=== PATIENT | male | born 1965 | race Caucasian/White ===

== ENCOUNTER 2020-03-30 01:30 | Emergency (ER) | payer MEDICAID, SELFPAY ==
--- NOTE | ~2020-03-30 | CT_ITS ---
EXAMINATION: CT HEAD WITHOUT CONTRAST CLINICAL INFORMATION: Fall. Intoxicated. COMPARISON: None. TECHNIQUE: Contiguous axial imaging was performed from the skull base to vertex without intravenous contrast. This CT examination was performed using dose optimization techniques as appropriate, variously including the following: * Automated exposure control * Adjustment of mA and/or kV according to patient size (this includes techniques or standardized protocols for targeted exams where dose is matched to indication/reason for exam; i.e. extremities or head) Use of iterative reconstruction technique DLP: 1261 mGy-cm. FINDINGS: The study is motion limited. There is no evidence of acute intracranial hemorrhage or territorial infarction. No abnormal mass effect or midline shift is seen. [place] to white matter differentiation is well preserved. No extra-axial fluid collections are identified. No hydrocephalus. No significant volume loss. There is no abnormal attenuation within the brain parenchyma. The osseous structures and soft tissues are normal. The mastoid air cells and visualized portions of the paranasal sinuses are well aerated. CT/CT head/brain wo con IMPRESSION: No acute intracranial pathology.
[2020-03-30 02:12] VITALS: BP 173/108; PULSE 113; RESP 20; TEMP 36.6; O2SAT 96; BMI 22.8
--- NOTE | 2020-03-30 02:16 | PC.NURSE ---
CHANGEOVER COMPLETED WITHOUT ISSUE. PT AMBULATES WITH STEADY GAIT. ADMITS TO ETOH USE TODAY, WITH FALL. NO OBVIOUS SIGNS OF INJURY NOTED, DENIES PAIN/COMPLAINTS AT THIS TIME. DENIES SI/HI. 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 WITNESSED BY THIS RN AND CONSTANTIN (PCT). PATIENT IS PLEASANT, CALM/COOPERATIVE, IN BEHAVIORAL CONTROL AT THIS TIME AND IS EASILY REDIRECTABLE/RESPONSIVE. WILL CONTINUE TO MONITOR.
--- NOTE | 2020-03-30 03:54 | ECG_ITS ---
Test Reason : FALL Blood Pressure : / mmHG Vent. Rate : 125 BPM Atrial Rate : 125 BPM P-R Int : 138 ms QRS Dur : 084 ms QT Int : 318 ms P-R-T Axes : 085 087 075 degrees QTc Int : 458 ms Sinus tachycardia Possible Left atrial enlargement Anterior infarct , age undetermined Abnormal ECG No previous ECGs available Referred By: Eboni Alonzo Electronically Signed By:Zhang Diaz
[2020-03-30 04:00] VITALS: BP 158/78; PULSE 120; RESP 20; TEMP 36.1; O2SAT 99
--- NOTE | 2020-03-30 04:13 | ED.ALCOHOL ---
HPI - Alcohol General Chief Complaint: ETOH/Substance Use Stated Complaint: fall Time Seen by Provider: 03/30/20 03:03 Source: patient Mode of arrival: EMS History of Present Illness HPI narrative: This is a 54-year-old male with alcohol dependence who was found by police after a fall and patient states that yes he slipped and fell on some ice. The police called the ambulance for evaluation by the emergency department. Patient denies any drug use, dizziness, neck pain, or headache. Related Data Allergies Allergy/AdvReac Type Severity Reaction Status Date / Time No Known Allergies Allergy Verified 03/30/20 03:55 Review of Systems Review of Systems: Pertinent positives and negatives as stated in HPI 10 point review of systems is otherwise negative. PMFSH Past Medical History Source: nursing notes reviewed Social History Social History Alcohol intake: current Alcohol intake frequency: 0-2 drinks per day Alcohol type: beer Smoking Status: Current every day smoker Use of substances other than those prescribed or required for medical reasons: No Advance Directives: No Physical Exam Vital Signs: Vital Signs: Last Vital Signs Temp 96.9 F 03/30/20 04:00 Pulse 120 H 03/30/20 04:00 Resp 20 03/30/20 04:00 BP 158/78 H 03/30/20 04:00 Pulse Ox 99 03/30/20 04:00 Body Mass Index 22.8 VITAL SIGNS: Reviewed. GENERAL: Well developed, well nourished, in no acute distress. HEAD: Normocephalic/atraumatic EYES: PERRLA, EOMI NOSE: Nares patent bilateral OROPHARYNX: no oral lesions noted, posterior pharynx clear NECK: Supple, no adenopathy LUNGS: Normal breath sounds. SpO2<99> CARDIOVASCULAR: Sinus tachycardia without noted murmurs, no JVD or lower extremity edema. ABDOMEN: Soft, non-tender, non-distended with bowel sounds. MUSCULOSKELETAL: No tenderness, deformities, or effusions noted on gross inspection. EXTREMITIES: No cyanosis, clubbing or edema. SKIN: Inspection of the skin reveals no rashes NEUROLOGIC: Alert and oriented x 4. Strength and sensation to light touch were grossly intact x 4, steady gait, no slurred speech. Course Course Course Narrative: This is a 54-year-old male with history and clinical presentation consistent with mechanical slip and fall on ice and review of all investigations is negative for any acute findings other than expected elevated BARTOLO. Patient has been calm cooperative throughout his stay and CT was negative for any intracranial findings. Patient is clinically sober and will be discharged with a sober ride with his friend. He is otherwise hemodynamically stable. MDM - Alcohol Lab Data Result diagrams: 03/30/20 04:29 03/30/20 04:29 Labs: Lab Results 03/30/20 03/30/20 03/30/20 Range/Units 04:29 04:29 04:29 WBC 5.3 (4.8-10.8) X10*3/uL RBC 4.43 L (4.60-5.80) X10*6/uL Hgb 14.4 (14.0-18.0) g/dl Hct 43.0 (42-52) % MCV 97.1 (80-98) fL MCH 32.5 (27.0-33.0) pg MCHC 33.5 (31.0-36.0) g/dl RDW 12.6 (11.0-16.0) % Plt Count 146 L (160-400) X10*3/uL MPV 9.2 L (9.4-12.4) fL Immature Gran % (Auto) 0.4 (0.0-0.4) % Neut % (Auto) 60.0 (45-73) % Lymph % (Auto) 22.5 (20-40) % [place] % (Auto) 12.0 H (2-11) % Eos % (Auto) 3.2 (0-4) % Baso % (Auto) 1.9 (0-2) % Lymph # (Auto) 1.2 (1.2-4.9) X10*3/uL [place] # (Auto) 0.6 (0.1-1.2) X10*3/uL Eos # (Auto) 0.2 (0.0-0.4) X10*3/uL Baso # (Auto) 0.1 (0.0-0.2) X10*3/uL Abs Immat Gran (auto) 0.02 (0.00-0.03) X10*3/uL Absolute Neuts (auto) 3.2 (2.0-8.3) X10*3/uL Absolute Nucleated RBC 0.000 (0.0-0.012) X10*3/uL Nucleated RBC % (auto) 0.0 (0.0-0.2) /100WBC Sodium 141 (135-145) mmol/L Potassium 4.5 (3.3-5.1) mmol/L Chloride 104 (96-108) mmol/L Carbon Dioxide 23 (22-29) mmol/L Anion Gap 19 (12-20) BUN 11 (9-16) mg/dL Creatinine 0.79 (0.5-1.4) mg/dL Estim Creat Clear Calc 102.8 Estimated GFR > 60 Random Glucose 114 (60-115) mg/dL Calcium 9.3 (8.4-10.2) mg/dL Total Bilirubin 0.6 (0.0-1.0) mg/dL AST 142 H (5-37) U/L ALT 101 H (0-40) U/L Alkaline Phosphatase 105 (39-117) U/L Total Protein 7.6 (6.5-8.0) g/dL Albumin 4.8 (3.5-5.0) g/dL Ethyl Alcohol 349 H* mg/dL ECG Data Attestation: I personally reviewed and interpreted this ECG as follows: Prior ECG tracings: not available for review Interpretation: Since tachycardia, HR -125, no evidence of acute ischemia, [place]/QRS/QTC are within normal limits. Discharge Plan Discharge Clinical Impression: Alcoholic intoxication Qualifiers: Complication of substance-induced condition: uncomplicated Qualified Code(s): F10.920 - Alcohol use, unspecified with intoxication, uncomplicated Fall Qualifiers: Encounter type: initial encounter Qualified Code(s): W19.XXXA - Unspecified fall, initial encounter Patient Disposition: Home, Self-Care Instructions: Alcohol Intoxication (ED), Alcohol Dependence (ED), Fall Prevention for Older Adults (ED) Additional Instructions: Please return to the emergency department should you develop any concerning symptoms. Referrals: Physician,Unknown [Primary Care Provider] - 2 days
[2020-03-30 04:33] LABS: Basophils Absolute Auto 0.1 X10*3/uL (0.0-0.2); Basophils Percent Auto 1.9 % (0-2); Eosinophils Absolute Auto 0.2 X10*3/uL (0.0-0.4); Eosinophils Percent Auto 3.2 % (0-4); Hemoglobin 14.4 g/dl (14.0-18.0); Imm Gran Abs Auto 0.02 X10*3/uL (0.00-0.03); Imm Gran Pct Auto 0.4 % (0.0-0.4); Lymphocytes Absolute Auto 1.2 X10*3/uL (1.2-4.9); Lymphocytes Percent Auto 22.5 % (20-40); MANUAL DIFF FLAG NO; Mean Corpuscular HGB Conc 33.5 g/dl (31.0-36.0); Mean Corpuscular Hemoglobin 32.5 pg (27.0-33.0); Mean Corpuscular Volume 97.1 fL (80-98); Mean Platelet Volume 9.2 fL (9.4-12.4); Monocytes Absolute Auto 0.6 X10*3/uL (0.1-1.2); Neutrophils Absolute Auto 3.2 X10*3/uL (2.0-8.3); Platelet Count 146 X10*3/uL (160-400); Red Blood Count 4.43 X10*6/uL (4.60-5.80); Red Cell Distribution Width 12.6 % (11.0-16.0); White Blood Count 5.3 X10*3/uL (4.8-10.8)
[2020-03-30 04:58] LABS: Ethanol 349 mg/dL
[2020-03-30 05:05] LABS: Alanine Aminotransferase 101 U/L (0-40); Albumin Level 4.8 g/dL (3.5-5.0); Alkaline Phosphatase 105 U/L (39-117); Anion Gap 19 (12-20); Aspartate Amino Transferase 142 U/L (5-37); Bilirubin Total 0.6 mg/dL (0.0-1.0); Blood Urea Nitrogen 11 mg/dL (9-16); Calcium 9.3 mg/dL (8.4-10.2); Carbon Dioxide 23 mmol/L (22-29); Chloride 104 mmol/L (96-108); Creatinine Clr Calc Pharmacy 102.8; Estimated Glomerular Filt Rate > 60; Glucose Random 114 mg/dL (60-115); Potassium 4.5 mmol/L (3.3-5.1); Sodium 141 mmol/L (135-145); Total Protein 7.6 g/dL (6.5-8.0)
== END 2020-03-30 07:09 | disposition home or self-care (01) ==
PROVIDERS: Emergency Provider Student in an Organized Health Care Education/Training Program
DX: F10.220 Alcohol dependence with intoxication, uncomplicated (principal); Y90.8 Blood alcohol level of 240 mg/100 ml or more; R00.0 Tachycardia, unspecified; Z91.81 History of falling; F17.200 Nicotine dependence, unspecified, uncomplicated
CPT/HCPCS: 36415; 70450; 80053; 80320; 85025; 93005; 99284; 99285

== ENCOUNTER 2020-05-10 02:43 | Emergency (ER) | payer OTHER, SELFPAY ==
--- NOTE | ~2020-05-10 | CT_ITS ---
EXAMINATION: CT HEAD WITHOUT CONTRAST CLINICAL INFORMATION: Fall. Contusion. COMPARISON: 03/30/2020. TECHNIQUE: Contiguous helical images of the brain were obtained without IV contrast. Multiplanar reconstructions were performed. DLP: 628 mGy-cm. FINDINGS: There are no pathologic extra-axial fluid collections. The lateral, third, fourth ventricles are nondilated and concordant with the appearance of the sulci. There is no evidence for acute intraparenchymal hemorrhage or infarct. There is neither mass nor mass effect. There is no shift of midline structures. The paranasal sinuses and mastoid air cells are clear. There are no osseous lesions. There is a soft tissue hematoma overlying the right frontal bone. CT/CT head/brain wo con IMPRESSION: No evidence for acute intracranial injury. Automated exposure control (Care Dose) Adjustment of the mA and/or kv according to patient size (this includes techniques or standardized protocols for targeted exams where dose is matched to indication / reason for exam; i.e. extremities or head).
[2020-05-10 02:45] VITALS: BP 130/70; BP 165/109; PULSE 120; PULSE 70; RESP 18; TEMP 36.3; O2SAT 97; O2SAT 99; BMI 22.0
--- NOTE | 2020-05-10 03:08 | ED_ITS ---
HPI - Alcohol General Chief Complaint: ETOH/Substance Use Stated Complaint: ETOH INTOX W/FALL, FOUND WANDERING OUTSIDE BY [employer] Time Seen by Provider: 05/10/20 03:07 Source: patient Mode of arrival: EMS History of Present Illness HPI narrative: This is a 55-year-old male with known alcohol dependency who was found wandering by police. Patient states he had 3 drinks. Patient currently denies any pain, difficulty breathing, or chest pain. Patient denies any headache or neck pain, dizziness. Related Data Allergies Allergy/AdvReac Type Severity Reaction Status Date / Time No Known Allergies Allergy Verified 03/30/20 03:55 Review of Systems Review of Systems: Pertinent positives and negatives as stated in HPI 10 point review of systems is otherwise negative. [facility] Past Medical History Source: nursing notes reviewed Medical History ETOH abuse Social History Social History Alcohol intake: current Alcohol intake frequency: 0-2 drinks per day Alcohol type: beer Smoking Status: Current every day smoker Advance Directives: No Advance Directives Information Provided: No Physical Exam Vital Signs: Vital Signs: Last Vital Signs Temp 98.7 F 05/10/20 04:00 Pulse 102 H 05/10/20 06:53 Resp 15 05/10/20 06:53 BP 118/69 05/10/20 06:53 Pulse Ox 95 05/10/20 06:53 Body Mass Index 22.0 VITAL SIGNS: Reviewed. GENERAL: Well developed, well nourished, in no acute distress. HEAD: Normocephalic/contusion noted to right forehead and temporal area EYES: PERRLA, EOMI intact without pain, no nystagmus/pallor/icterus noted OROPHARYNX: no oral lesions noted, posterior pharynx clear, dry mucosa NECK: Supple, no adenopathy LUNGS: Normal breath sounds. No adventitious sounds or accessory muscle use. SpO2<98> CARDIOVASCULAR: Regular rate and rhythm without noted murmurs ABDOMEN: Soft, non-tender, non-distended with bowel sounds. NEUROLOGIC: Alert and oriented x 4. Strength and sensation to light touch were grossly intact x 4. Course Course Course Narrative: This is a 55-year-old male with history and clinical presentation consistent with alcohol intoxication leading to fall without evidence to suggest intracranial pathologies. Patient will be given IV fluids, basic labs, and head CT, IV fluids. On review of all investigations there are no acute findings other than trace leukocyte esterase without nitrites, ketones or wbc's given the presence squamous epithelial cells will not be treated as a UTI. On re-evaluation patient remains slightly unsteady, will provide breakfast, and re-evaluate for clinical sobriety MDM - Alcohol Lab Data Result diagrams: 05/10/20 03:41 05/10/20 03:41 Labs: Lab Results 05/10/20 05/10/20 05/10/20 Range/Units 03:41 03:41 03:41 WBC 5.5 (4.8-10.8) X10*3/uL RBC 4.54 L (4.60-5.80) X10*6/uL Hgb 14.9 (14.0-18.0) g/dl Hct 44.8 (42-52) % MCV 98.7 H (80-98) fL MCH 32.8 (27.0-33.0) pg MCHC 33.3 (31.0-36.0) g/dl RDW 13.0 (11.0-16.0) % Plt Count 157 L (160-400) X10*3/uL MPV 9.4 (9.4-12.4) fL Immature Gran % (Auto) 0.5 H (0.0-0.4) % Neut % (Auto) 53.4 (45-73) % Lymph % (Auto) 25.5 (20-40) % [place] % (Auto) 13.3 H (2-11) % Eos % (Auto) 5.3 H (0-4) % Baso % (Auto) 2.0 (0-2) % Lymph # (Auto) 1.4 (1.2-4.9) X10*3/uL [place] # (Auto) 0.7 (0.1-1.2) X10*3/uL Eos # (Auto) 0.3 (0.0-0.4) X10*3/uL Baso # (Auto) 0.1 (0.0-0.2) X10*3/uL Abs Immat Gran (auto) 0.03 (0.00-0.03) X10*3/uL Absolute Neuts (auto) 2.9 (2.0-8.3) X10*3/uL Absolute Nucleated RBC 0.000 (0.0-0.012) X10*3/uL Nucleated RBC % (auto) 0.0 (0.0-0.2) /100WBC Sodium 138 (135-145) mmol/L Potassium 4.2 (3.3-5.1) mmol/L Chloride 100 (96-108) mmol/L Carbon Dioxide 24 (22-29) mmol/L Anion Gap 18 (12-20) BUN 14 (9-16) mg/dL Creatinine 0.94 (0.5-1.4) mg/dL Estim Creat Clear Calc 89.9 Estimated GFR > 60 Random Glucose 103 (60-115) mg/dL Calcium 9.1 (8.4-10.2) mg/dL Total Bilirubin 0.6 (0.0-1.0) mg/dL AST 67 H (5-37) U/L ALT 56 H (0-40) U/L Alkaline Phosphatase 96 (39-117) U/L Total Protein 8.0 (6.5-8.0) g/dL Albumin 4.9 (3.5-5.0) g/dL Urine Color Urine Appearance Urine pH (5.0-8.0) Ur Specific [place] (1.005-1.025) Urine Protein (NEG-TRACE) MG/DL Urine Glucose (UA) (NEG) MG/DL Urine Ketones (NEG) MG/DL Urine Blood (NEG) Urine Nitrite (NEG) Ur Leukocyte Esterase (NEG) Urine RBC (0) /HPF Urine WBC (0-4) /HPF Ur Squamous Epith Cells /LPF Urine Bacteria /LPF Urine Opiates Screen (Not Detect) Ur Barbiturates Screen (Not Detect) Ur Phencyclidine Scrn (Not Detect) Ur Amphetamines Screen (Not Detect) U Benzodiazepines Scrn (Not Detect) Urine Cocaine Screen (Not Detect) U Marijuana (THC) Screen (Not Detect) Ethyl Alcohol 375 H* mg/dL 05/10/20 05/10/20 Range/Units 03:47 03:47 WBC (4.8-10.8) X10*3/uL RBC (4.60-5.80) X10*6/uL Hgb (14.0-18.0) g/dl Hct (42-52) % MCV (80-98) fL MCH (27.0-33.0) pg MCHC (31.0-36.0) g/dl RDW (11.0-16.0) % Plt Count (160-400) X10*3/uL MPV (9.4-12.4) fL Immature Gran % (Auto) (0.0-0.4) % Neut % (Auto) (45-73) % Lymph % (Auto) (20-40) % [place] % (Auto) (2-11) % Eos % (Auto) (0-4) % Baso % (Auto) (0-2) % Lymph # (Auto) (1.2-4.9) X10*3/uL [place] # (Auto) (0.1-1.2) X10*3/uL Eos # (Auto) (0.0-0.4) X10*3/uL Baso # (Auto) (0.0-0.2) X10*3/uL Abs Immat Gran (auto) (0.00-0.03) X10*3/uL Absolute Neuts (auto) (2.0-8.3) X10*3/uL Absolute Nucleated RBC (0.0-0.012) X10*3/uL Nucleated RBC % (auto) (0.0-0.2) /100WBC Sodium (135-145) mmol/L Potassium (3.3-5.1) mmol/L Chloride (96-108) mmol/L Carbon Dioxide (22-29) mmol/L Anion Gap (12-20) BUN (9-16) mg/dL Creatinine (0.5-1.4) mg/dL Estim Creat Clear Calc Estimated GFR Random Glucose (60-115) mg/dL Calcium (8.4-10.2) mg/dL Total Bilirubin (0.0-1.0) mg/dL AST (5-37) U/L ALT (0-40) U/L Alkaline Phosphatase (39-117) U/L Total Protein (6.5-8.0) g/dL Albumin (3.5-5.0) g/dL Urine Color STRAW Urine Appearance CLEAR Urine pH 5.5 (5.0-8.0) Ur Specific [place] <= 1.005 (1.005-1.025) Urine Protein NEG (NEG-TRACE) MG/DL Urine Glucose (UA) NEG (NEG) MG/DL Urine Ketones NEG (NEG) MG/DL Urine Blood NEG (NEG) Urine Nitrite NEG (NEG) Ur Leukocyte Esterase TRACE H (NEG) Urine RBC 0 (0) /HPF Urine WBC 0 (0-4) /HPF Ur Squamous Epith Cells TRACE /LPF Urine Bacteria NONE /LPF Urine Opiates Screen Not Detected (Not Detect) Ur Barbiturates Screen Not Detected (Not Detect) Ur Phencyclidine Scrn Not Detected (Not Detect) Ur Amphetamines Screen Not Detected (Not Detect) U Benzodiazepines Scrn Not Detected (Not Detect) Urine Cocaine Screen Not Detected (Not Detect) U Marijuana (THC) Screen Not Detected (Not Detect) Ethyl Alcohol mg/dL ECG Data Attestation: I personally reviewed and interpreted this ECG as follows: Prior ECG tracings: available for review (03/30/2020 no acute changes on comparison) Interpretation: Sinus tachycardia, HR-120, no evidence of acute ischemia, [place]/QRS/QTC are within normal limits. Discharge Plan Discharge Clinical Impression: Alcoholic intoxication, Contusion Patient Disposition: Home, Self-Care Instructions: Abuse of Alcohol (ED), Alcohol Dependence (ED), Alcohol Intoxication (ED), Scalp Contusion in Adults (ED) Additional Instructions: Do not hesitate to return to the emergency department should you experience any acute worsening of symptoms. Referrals: Physician,Unknown [Primary Care Provider] - 2 days
--- NOTE | 2020-05-10 03:08 | ECG_ITS ---
Test Reason : FALL Blood Pressure : / mmHG Vent. Rate : 120 BPM Atrial Rate : 120 BPM P-R Int : 140 ms QRS Dur : 082 ms QT Int : 330 ms P-R-T Axes : 079 084 075 degrees QTc Int : 466 ms Sinus tachycardia Possible Left atrial enlargement Possible anterior infarct Abnormal ECG When compared with ECG of 30-MAR-2020 04:09, No significant change was found Referred By: Eboni Alonzo Electronically Signed By:Zhang Diaz
[2020-05-10 03:45] LABS: Basophils Absolute Auto 0.1 X10*3/uL (0.0-0.2); Eosinophils Absolute Auto 0.3 X10*3/uL (0.0-0.4); Eosinophils Percent Auto 5.3 % (0-4); Hematocrit 44.8 % (42-52); Hemoglobin 14.9 g/dl (14.0-18.0); Imm Gran Abs Auto 0.03 X10*3/uL (0.00-0.03); Imm Gran Pct Auto 0.5 % (0.0-0.4); Lymphocytes Absolute Auto 1.4 X10*3/uL (1.2-4.9); Lymphocytes Percent Auto 25.5 % (20-40); MANUAL DIFF FLAG NO; Mean Corpuscular HGB Conc 33.3 g/dl (31.0-36.0); Mean Corpuscular Hemoglobin 32.8 pg (27.0-33.0); Mean Corpuscular Volume 98.7 fL (80-98); Mean Platelet Volume 9.4 fL (9.4-12.4); Monocytes Absolute Auto 0.7 X10*3/uL (0.1-1.2); Monocytes Percent Auto 13.3 % (2-11); Neutrophils Absolute Auto 2.9 X10*3/uL (2.0-8.3); Neutrophils Percent Auto 53.4 % (45-73); Platelet Count 157 X10*3/uL (160-400); Red Blood Count 4.54 X10*6/uL (4.60-5.80); White Blood Count 5.5 X10*3/uL (4.8-10.8)
[2020-05-10 04:00] VITALS: BP 148/87; PULSE 121; RESP 16; TEMP 37.1; O2SAT 98
[2020-05-10 04:04] LABS: Glucose Urine UA NEG (NEG); Leukocyte Esterase Urine TRACE (NEG); Nitrite Urine NEG (NEG); PH 5.5 (5.0-8.0); Specific Gravity - Urine <= 1.005 (1.005-1.025); UACC Culture Trigger YES; Urine Blood NEG (NEG); Urine Ketones NEG (NEG); Urine Protein NEG (NEG-TRACE)
[2020-05-10 04:04] LABS: Ethanol 375 mg/dL
[2020-05-10 04:05] LABS: Appearance Urine CLEAR; Color Urine STRAW
[2020-05-10] MEDS: 0.9 % Sodium Chloride 1,000 ML 999 ML IV (04:05)
[2020-05-10 04:08] LABS: Alanine Aminotransferase 56 U/L (0-40); Albumin Level 4.9 g/dL (3.5-5.0); Alkaline Phosphatase 96 U/L (39-117); Anion Gap 18 (12-20); Aspartate Amino Transferase 67 U/L (5-37); Bilirubin Total 0.6 mg/dL (0.0-1.0); Blood Urea Nitrogen 14 mg/dL (9-16); Calcium 9.1 mg/dL (8.4-10.2); Carbon Dioxide 24 mmol/L (22-29); Chloride 100 mmol/L (96-108); Creatinine Clr Calc Pharmacy 89.9; Estimated Glomerular Filt Rate > 60; Glucose Random 103 mg/dL (60-115); Potassium 4.2 mmol/L (3.3-5.1); Sodium 138 mmol/L (135-145)
[2020-05-10 04:17] LABS: Amphetamine Screen Urine Not Detected (Not Detect); Barbiturates, Urine Not Detected (Not Detect); Benzodiazepines Screen Urine Not Detected (Not Detect); Cannabinoid Screen Urine Not Detected (Not Detect); Cocaine Screen Urine Not Detected (Not Detect); Opiate Screen Urine Not Detected (Not Detect); Phencyclidine Screen Urine Not Detected (Not Detect)
[2020-05-10 04:24] LABS: RBC Urine 0 /HPF (0); WBC Urine 0 /HPF (0-4)
[2020-05-10 04:25] LABS: Squamous Epithelial Cell Urine TRACE /LPF
--- NOTE | 2020-05-10 04:27 | PC.NURSE ---
pt awake, cooperative and aware of his surroundings. pt has swelling and abrasion to left forehead. pt's backpack given to security, several knives in backpack.
[2020-05-10] MEDS: LORazepam 2 MG/ML VIAL 1 MG IVPUSH (05:18)
[2020-05-10 05:22] VITALS: BP 136/72; PULSE 122; RESP 17; O2SAT 97
[2020-05-10 05:50] VITALS: BP 119/64; PULSE 113; RESP 14; O2SAT 95
[2020-05-10 06:53] VITALS: BP 118/69; PULSE 102; RESP 15; O2SAT 95
--- NOTE | 2020-05-10 06:54 | PC.NURSE ---
PT SLEEPING, WAKES EASILY WHEN RN ENTERS ROOM. GOOD RESPIRATORY EFFORT AND RATE.
--- NOTE | 2020-05-10 07:31 | PC.NURSE ---
Ambulation trial performed. Pt moderately unsteady needing alot of redirection. Will feed breakfast and perform trial again in 1 hour.
--- NOTE | 2020-05-10 08:05 | MHC.MBSS ---
[place] and JESSIKA sandwiches with hakeem froilan provided to pt.
--- NOTE | 2020-05-10 08:43 | MHC.RECOVSUP ---
Recovery Support note: Patient is a 55 year old Nauruan speaking male who presented to [facility] ED after a fall while intoxicated. This sql report writer met with patient to discuss his alcohol use. Patient was willing to meet with this sql report writer however denied that his drinking is problematic. Patient states he had about 3 beers prior to his fall but cites his heavy backpack as the reason for his fall. Patient reports he lost his truck a year ago and he has been walking several miles a day as a result. Patient reports falling due to the large amount of walking he has been doing and his backpack making him unsteady. Patient reports no need for support at this time.
== END 2020-05-10 09:15 | disposition home or self-care (01) ==
PROVIDERS: Emergency Provider Student in an Organized Health Care Education/Training Program
DX: F10.220 Alcohol dependence with intoxication, uncomplicated (principal); Y90.8 Blood alcohol level of 240 mg/100 ml or more; S00.83XA Contusion of other part of head, initial encounter; W01.0XXA Fall on same level from slipping, tripping and stumbling without subsequent striking against object, initial encounter; R00.0 Tachycardia, unspecified; F17.200 Nicotine dependence, unspecified, uncomplicated; Y93.01 Activity, walking, marching and hiking; Y92.480 Sidewalk as the place of occurrence of the external cause; Y99.9 Unspecified external cause status
CPT/HCPCS: 36415; 70450; 80053; 80307; 80320; 81001; 81003; 85025; 87086; 93005; 96361; 96374; 99284; J2060

== ENCOUNTER 2021-05-18 10:55 | Emergency (ER) | payer OTHER, SELFPAY ==
[2021-05-18] VITALS (7 sets, daily range): BP systolic 153–177; BP diastolic 94–109; PULSE 80–112; RESP 16–20; TEMP 36.4–37.3; O2SAT 95–98; BMI 27.3
--- NOTE | ~2021-05-18 | XR_ITS ---
EXAMINATION: XR CHEST CLINICAL INFORMATION: Shortness of breath. Chest pain. COMPARISON: None TECHNIQUE: 2 views of the chest were obtained. FINDINGS: The lungs are well expanded. There is no focal consolidation, edema, or effusion. No pneumothorax. The cardiomediastinal silhouette is within normal limits. No acute osseous abnormality. XR/XR chest 2V IMPRESSION: Clear lungs.
--- NOTE | 2021-05-18 14:47 | ECG_ITS ---
Test Reason : DETOX Blood Pressure : / mmHG Vent. Rate : 094 BPM Atrial Rate : 094 BPM P-R Int : 146 ms QRS Dur : 074 ms QT Int : 362 ms P-R-T Axes : 078 094 077 degrees QTc Int : 452 ms Normal sinus rhythm Anterolateral infarct (cited on or before 18-MAY-2021) Abnormal ECG When compared with ECG of 10-MAY-2020 04:29, No significant change was found Referred By: Emmanuel Elizondo Electronically Signed By:TARIQ FLEMING MD
--- NOTE | 2021-05-18 14:51 | ED_ITS ---
HPI - Psych General Chief Complaint: Psychiatric Symptoms Stated Complaint: crisis Time Seen by Provider: 05/18/21 13:47 Source: patient Mode of arrival: EMS Limitations: no limitations History of Present Illness HPI Narrative: 56-year-old male who was sent to the emergency department by his PCP for evaluation of his alcohol use disorder and concerned about his psychiatric issues/mood swings. The patient states that he saw his doctor yesterday and his doctor wanted him to come to the hospital for psychiatric evaluation. He states that he is supposed to be on medications but has not taken them in 6 years . He states that his doctor did refill all these medications yesterday but he has not picked them up yet from the pharmacy. Patient states that he drinks 12 shots of he Jagar Aaron shot per day and drinks 12 beers per day. He states this last drink was at 02:00 hours. The following information was obtained from a note sent in with the patient: Patient has a history of anxiety, depression, OCD, mood swings and anger issues. He often has confusion and repeats issues that he has had with bills, people and car noises and this is been going on for years. He often repeats you when talking about caring for himself. Apparently the patient cannot work secondary to disability and is currently using his pension to support himself which will eventually the run out. The patient is spending his money at bars daily. Also, the patient was living with his mother who is currently in a nursing facility. The patient's brother is concerned that if there mother dies, the patient will also be homeless. There was concerned the patient is self medicating with alcohol. I did speak to the community mental health worker, Edu Hyde and she is requesting that we get Behavioral Health, care team and a manager of disaster recovery to talk to the patient's while he is here in the emergency department being evaluated. The patient did tell me that he is not interested in getting into detox program and that he wants to try to stop drinking by himself. Related Data Previous Rx's Medication Instructions Recorded albuterol sulfate 90 mcg/actuation 2 puff INHALATION Q6H PRN 30 Days 05/17/21 aerosol inhaler (ProAir HFA) #18 g amlodipine 5 mg tablet 5 mg PO DAILY 30 Days #30 tab 05/17/21 citalopram 10 mg tablet 10 mg PO DAILY 30 Days #30 tab 05/17/21 fluticasone propionate 110 2 puff INHALATION BID 30 Days #12 g 05/17/21 mcg/actuation HFA aerosol inhaler (Flovent HFA) fluticasone propionate 50 2 spray INTRANASAL DAILY 30 Days 05/17/21 mcg/actuation nasal #16 g spray,suspension Allergies Allergy/AdvReac Type Severity Reaction Status Date / Time No Known Allergies Allergy Verified 05/17/21 14:23 Review of Systems Review of Systems: Yes all other systems are reviewed and are negative [facility] Past Medical History [facility] Narrative: Past medical history: Reviewed below, patient also has history of anxiety, dep ression, OCD, mood swings/anger issues and confusion. Social history: The patient is living in his mother's house. He states that he stopped smoking when he was 38 years old and only smoked for 7 years he does admit to drinking 12 shots of alcohol per day and 12 beers per day. Medical History Alcoholism Allergic rhinitis Anxiety Benign essential hypertension COPD (chronic obstructive pulmonary disease) Depression ETOH abuse Surgical History No pertinent past surgical history Family History Family History Mother High blood pressure Alzheimer disease Father Diabetes Other Mental health problem Social History Social History Housing: House Alcohol intake: current Alcohol intake frequency: 0-2 drinks per day Alcohol type: beer Patient Tobacco Use Status: Former Tobacco user Quit Date: quit 6 years ago Second Hand Smoke Exposure: Yes service: No Current occupational status: unemployed Cognitive needs: Yes Hearing needs: No Vision needs: No Physical Exam Vital Signs: Vital Signs: Last Vital Signs Temp 99.1 F 05/18/21 15:42 Pulse 89 05/18/21 16:00 Resp 18 05/18/21 16:00 BP 168/102 H 05/18/21 16:00 Pulse Ox 98 05/18/21 16:00 BMI result Body Mass Index 27.3 Const: Other: Thin, disheveled male patient, he is pleasant and cooperative, he answers questions appropriately, he does appear to be tremulous. HEENT: Head: Yes normal to inspection, Yes normocephalic and Yes atraumatic Ears: external ears normal General nose exam: Normal external nose present Face and sinus: Yes normal facial exam Mouth: Normal oral and palatal mucosa present Throat: Yes posterior oropharynx normal Eyes: General: appearance normal, both eyes and all related structures Pupils: Equal, round and reactive pupils present Neck: Neck: Yes normal visual inspection, Yes no lymphadenopathy, Yes trachea midline and Yes supple Chest: Chest palpation & inspection: normal inspection of the chest and normal palpation of entire chest wall Resp: Effort & Inspection: normal respiratory effort and able to speak in complete sentences Auscultation: clear to auscultation bilaterally Cardio: Rate: tachycardic Rhythm: regular rhythm Heart sounds: S1 normal heart sound present, S2 normal heart sound present and no murmurs GI: Inspection: Yes normal to inspection Palpation (GI): Soft to palpation, nontender and no guarding Auscultation: normal bowel sounds : General: Yes no CVA tenderness Back/Spine/Pelvis: Back: no CVA tenderness Skin: General skin exam: no rashes or lesions noted Neuro: Other: Oriented to person place, answers questions appropriately Cranial nerves: Yes CN's II-XII intact bilaterally and Yes Equal, round and reactive pupils present Cognition (Neuro): normal cognition Motor exam (neuro): 5/5 motor strength present throughout Extrem: General: Yes normal to inspection Psych: Appearance: disheveled Speech and movement: Normal speech and movement present Affect: normal affect Attitude: cooperative Thought process: Normal thought process present Thought content: Normal thought content present Course Course Course Narrative: 56-year-old male with history of anxiety, depression, OCD, mood swings, anger issues, hypertension, COPD and alcohol use disorder who was sent to the emergency department by his PCP for psychiatric evaluation, evaluation for his alcohol use disorder and hypertension. The patient states that he is been off medications for at least 6 years. He states that he is not interested in getting into a alcohol treatment program at this time consuming wants to stop drinking by himself. Patient's last drink was at 02:00 hours. Vital signs revealed an elevated blood pressure of 177/105, elevated pulse of 112. Vital signs otherwise unremarkable. The patient does appear to be disheveled but is cooperative. He is tachycardic and he is tremulous and I believe that he is withdrawing from alcohol. I order laboratory evaluation, in and care team evaluation. Patient was ordered to get normal saline x1 L and Librium 100 mg orally for his withdrawal. 1629: Laboratory evaluation: WBC low 3900, platelets low 135,000, elevated AST and ALT 74 and 82. COVID-19, influenza pending. Radiology evaluation: Chest x-ray was unremarkable. EKG: Unremarkable Patient's tremors improved after the Librium 100 mg orally. Patient is still waiting for [facility] and care team evaluation. At the end of my shift, the patient's care was turned over to my colleague, Dr. Weber. [facility] - Psych Lab Data Result diagrams: 05/18/21 15:11 05/18/21 15:11 Labs: Lab Results 05/18/21 05/18/21 05/18/21 Range/Units 15:11 15:11 15:11 WBC 3.9 L (4.8-10.8) X10*3/uL RBC 4.47 L (4.60-5.80) X10*6/uL Hgb 14.6 (14.0-18.0) g/dl Hct 43.1 (42.0-52.0) % MCV 96.4 (80.0-98.0) fL MCH 32.7 (27.0-33.0) pg MCHC 33.9 (31.0-36.0) g/dl RDW 13.2 (11.0-16.0) % Plt Count 135 L (160-400) X10*3/uL MPV 8.9 L (9.4-12.4) fL Immature Gran % (Auto) 0.3 (0.0-0.4) % Neut % (Auto) 58.1 (45-73) % Lymph % (Auto) 24.4 (20-40) % Gage % (Auto) 15.1 H (2-11) % Eos % (Auto) 0.8 (0-4) % Baso % (Auto) 1.3 (0-2) % Lymph # (Auto) 0.9 L (1.2-4.9) X10*3/uL Gage # (Auto) 0.6 (0.1-1.2) X10*3/uL Eos # (Auto) 0.0 (0.0-0.4) X10*3/uL Baso # (Auto) 0.1 (0.0-0.2) X10*3/uL Abs Immat Gran (auto) 0.01 (0.00-0.03) X10*3/uL Absolute Neuts (auto) 2.2 (2.0-8.3) x10*3/uL Absolute Nucleated RBC 0.000 (0.0-0.012) X10*3/uL Nucleated RBC % (auto) 0.0 (0.0-0.2) /100WBC Sodium 139 (135-145) mmol/L Potassium 4.4 (3.3-5.1) mmol/L Chloride 101 (96-108) mmol/L Carbon Dioxide 24 (22-29) mmol/L Anion Gap 18 (12-20) BUN 5 L (9-16) mg/dL Creatinine 0.83 (0.5-1.4) mg/dL Estim Creat Clear Calc 96.1 Estimated GFR > 60 Random Glucose 109 (60-115) mg/dL Calcium 9.7 D (8.4-10.2) mg/dL Total Bilirubin 0.8 (0.0-1.0) mg/dL AST 74 H (5-37) U/L ALT 82 H (0-40) U/L Alkaline Phosphatase 76 D (39-117) U/L Troponin I High Sens < 3.5 (<3.5-35.0) ng/L Total Protein 8.2 H (6.5-8.0) g/dL Albumin 5.0 (3.5-5.0) g/dL Lipase 21 (8-78) U/L Ethyl Alcohol mg/dL 05/18/21 Range/Units 15:11 WBC (4.8-10.8) X10*3/uL RBC (4.60-5.80) X10*6/uL Hgb (14.0-18.0) g/dl Hct (42.0-52.0) % MCV (80.0-98.0) fL MCH (27.0-33.0) pg MCHC (31.0-36.0) g/dl RDW (11.0-16.0) % Plt Count (160-400) X10*3/uL MPV (9.4-12.4) fL Immature Gran % (Auto) (0.0-0.4) % Neut % (Auto) (45-73) % Lymph % (Auto) (20-40) % Gage % (Auto) (2-11) % Eos % (Auto) (0-4) % Baso % (Auto) (0-2) % Lymph # (Auto) (1.2-4.9) X10*3/uL Gage # (Auto) (0.1-1.2) X10*3/uL Eos # (Auto) (0.0-0.4) X10*3/uL Baso # (Auto) (0.0-0.2) X10*3/uL Abs Immat Gran (auto) (0.00-0.03) X10*3/uL Absolute Neuts (auto) (2.0-8.3) x10*3/uL Absolute Nucleated RBC (0.0-0.012) X10*3/uL Nucleated RBC % (auto) (0.0-0.2) /100WBC Sodium (135-145) mmol/L Potassium (3.3-5.1) mmol/L Chloride (96-108) mmol/L Carbon Dioxide (22-29) mmol/L Anion Gap (12-20) BUN (9-16) mg/dL Creatinine (0.5-1.4) mg/dL Estim Creat Clear Calc Estimated GFR Random Glucose (60-115) mg/dL Calcium (8.4-10.2) mg/dL Total Bilirubin (0.0-1.0) mg/dL AST (5-37) U/L ALT (0-40) U/L Alkaline Phosphatase (39-117) U/L Troponin I High Sens (<3.5-35.0) ng/L Total Protein (6.5-8.0) g/dL Albumin (3.5-5.0) g/dL Lipase (8-78) U/L Ethyl Alcohol 56 mg/dL Discharge Plan Discharge Clinical Impression: Alcohol use disorder, severe, dependence, Noncompliance with medications Patient Disposition: Still a Patient Prescriptions: No Action amlodipine 5 mg tablet 5 mg PO DAILY 30 Days Qty: 30 3RF Flovent HFA 110 mcg/actuation HFA aerosol inhaler 2 puff inhalation BID 30 Days Qty: 12 3RF albuterol sulfate [ProAir HFA] 90 mcg/actuation HFA aerosol inhaler 2 puff inhalation Q6H PRN (Reason: shortness of breath or wheezing) 30 Days Qty: 18 5RF fluticasone propionate 50 mcg/actuation spray,suspension 2 spray intranasal DAILY 30 Days Qty: 16 3RF Rx Instructions: administer into each nostril citalopram 10 mg tablet 10 mg PO DAILY 30 Days Qty: 30 3RF Rx Instructions: Take in AM
[2021-05-18] MEDS: chlordiazePOXIDE HCl 25 MG CAPSULE 100 MG PO (14:59)
[2021-05-18] MEDS: 0.9 % Sodium Chloride 1,000 ML 999 ML IV (15:12)
[2021-05-18 15:20] LABS: MANUAL DIFF FLAG NO
[2021-05-18 15:21] LABS: Basophils Absolute Auto 0.1 X10*3/uL (0.0-0.2); Basophils Percent Auto 1.3 % (0-2); Eosinophils Percent Auto 0.8 % (0-4); Hematocrit 43.1 % (42.0-52.0); Hemoglobin 14.6 g/dl (14.0-18.0); Imm Gran Abs Auto 0.01 X10*3/uL (0.00-0.03); Imm Gran Pct Auto 0.3 % (0.0-0.4); Lymphocytes Absolute Auto 0.9 X10*3/uL (1.2-4.9); Lymphocytes Percent Auto 24.4 % (20-40); Mean Corpuscular HGB Conc 33.9 g/dl (31.0-36.0); Mean Corpuscular Hemoglobin 32.7 pg (27.0-33.0); Mean Corpuscular Volume 96.4 fL (80.0-98.0); Mean Platelet Volume 8.9 fL (9.4-12.4); Monocytes Absolute Auto 0.6 X10*3/uL (0.1-1.2); Monocytes Percent Auto 15.1 % (2-11); Neutrophils Absolute Auto 2.2 x10*3/uL (2.0-8.3); Neutrophils Percent Auto 58.1 % (45-73); Platelet Count 135 X10*3/uL (160-400); Red Blood Count 4.47 X10*6/uL (4.60-5.80); Red Cell Distribution Width 13.2 % (11.0-16.0); White Blood Count 3.9 X10*3/uL (4.8-10.8)
[2021-05-18 15:33] LABS: Ethanol 56 mg/dL
[2021-05-18 15:36] LABS: Alanine Aminotransferase 82 U/L (0-40); Alkaline Phosphatase 76 U/L (39-117); Anion Gap 18 (12-20); Aspartate Amino Transferase 74 U/L (5-37); Bilirubin Total 0.8 mg/dL (0.0-1.0); Blood Urea Nitrogen 5 mg/dL (9-16); Calcium 9.7 mg/dL (8.4-10.2); Carbon Dioxide 24 mmol/L (22-29); Chloride 101 mmol/L (96-108); Creatinine Clr Calc Pharmacy 96.1; Estimated Glomerular Filt Rate > 60; Glucose Random 109 mg/dL (60-115); Lipase 21 U/L (8-78); Potassium 4.4 mmol/L (3.3-5.1); Sodium 139 mmol/L (135-145); Total Protein 8.2 g/dL (6.5-8.0)
[2021-05-18 15:41] LABS: Troponin-I High Sensitivity < 3.5 ng/L (<3.5-35.0)
[2021-05-18 16:36] LABS: Appearance Urine CLEAR; Color Urine YELLOW; Glucose Urine UA NEG (NEG); Leukocyte Esterase Urine NEG (NEG); Nitrite Urine NEG (NEG); Urine Blood NEG (NEG); Urine Ketones NEG (NEG); Urine Protein NEG (NEG-TRACE)
[2021-05-18 16:51] LABS: COVID-19 Test Negative (Negative); IDNOW Serial# 08D9AD1C; IDNOW Serial# 55D5AD1C; Influenza A Negative (Negative); Influenza B2 Negative (Negative)
--- NOTE | 2021-05-18 18:53 | MHC.CARE ---
CARE Team meets with pt, who comes to the ED from outpatient medical appointment today for assessment of his mental health and substance use. Pt is medically cleared at this time per Dr. Weber. He has a BAL in the 50s, and reports that he feels shaky and his legs hurt. Pt is not in a psychiatric crisis at this time, he denies SI/HI, denies AVH, but states that there is sometimes chatter in his head but he can turn it off easily and he does not find this distressing. Per PCP, pt is experiencing mood swings. Pt endorses some depression, and reports that he has a plan to start depression meds prescribed by his PCP. Pt is drinking approx 24 drinks daily. Pt is strongly encouraged to seek detox at this time, and he is appropriate for this level of care. Pt is encouraged to follow up with outpatient therapy and ongoing alcohol use treatment once detox admission is completed. Case is discussed with Dr. Weber and Breana So, psychiatric arnp who both agree that pt is not in psychiatric crisis and agree with recommendation for detox.
--- NOTE | 2021-05-18 21:30 | MHC.CARE ---
Pt is declined from [facility] due to provider note indicating he did not want ATS. CARE Tea, advocates that pt was encouraged to seek ATS and changed his mind. CARE Team checks in with pt again, who reports he absolutely does want ATS and is willing to go to [facility] should they reconsider him for admission. girls swimming coach is re sending packet.
--- NOTE | 2021-05-18 21:43 | PC.NURSE ---
Patient calm and quiet in his room, laying in bed, watching TV, mood expansive, affect cheerful, denied distress, asymptomatic of withdrawal, patient reported he never experienced but agreed to notify staff if he feels sick or withdrawing, will continue to monitor.
[2021-05-18] MEDS: LORazepam 1 MG TABLET 2 MG PO (22:27)
--- NOTE | 2021-05-18 22:33 | MHC.CARE ---
CARE team followed up with Ragini Jensen re: referral for detox admission. Nursing has received the updated medical packet and will review tonight. patient relations coordinator stated to this medical technical writer that someone from the hospital should call back in the morning to confirm whether he is accepted to the facility. Ragini Jensen [phone]
[2021-05-19] MEDS: LORazepam 1 MG TABLET 2 MG PO (06:38)
--- NOTE | 2021-05-19 06:50 | PC.NURSE ---
Patient slept through the night, no distress observed/reported, CIWA was 6, PRN Ativan 2 mg PO administered for comfort, assistant men's lacrosse coach coordinating detox bed search, behavior appropriate, will continue to monitor.
[2021-05-19 07:33] VITALS: BP 150/96; PULSE 90; RESP 14; TEMP 37.3; O2SAT 98
--- NOTE | 2021-05-19 07:36 | PC.NURSE ---
patient appears to remain asleep at present respirations are even and unlabored, patient appears in no distress.
--- NOTE | 2021-05-19 11:45 | MHC.RECOVSUP ---
? Reason for consult:Recovery support o Current location:[facility] o Identified substance use concern:ETOH - Withdrawal - Seeking ATS (detox) - Support ? Intervention: o ATS bed search started/completed/in process o Community resources provided o Harm reduction discussion ? Plan: o Referral to CCC o Patient to follow up with [facility] after discharge ? Additional information:Patient seeking detox. Patient did intake with [email or web address]. Waiting to here back from them to determine when his ETA is .
== END 2021-05-19 18:47 | disposition home or self-care (01) ==
PROVIDERS: Emergency Medicine Emergency Medical Services; Emergency Provider Internal Medicine; PCP Internal Medicine
DX: F33.1 Major depressive disorder, recurrent, moderate (principal); F10.20 Alcohol dependence, uncomplicated; Y90.2 Blood alcohol level of 40-59 mg/100 ml; Z87.891 Personal history of nicotine dependence; Z91.14 Patient's other noncompliance with medication regimen; Z20.822 Contact with and (suspected) exposure to COVID-19; Z79.899 Other long term (current) drug therapy; Z71.41 Alcohol abuse counseling and surveillance of alcoholic
CPT/HCPCS: 71046; 80053; 81003; 82077; 83690; 84484; 85025; 87502; 87635; 93005; 96360; 99284; 99285

== ENCOUNTER 2022-06-07 13:00 | Outpatient (RCR) | payer OTHER, SELFPAY ==
--- NOTE | 2022-05-09 14:52 | MHC.PT.EP ---
[facility] [place] [facility] [place] Office [place] [facility] [address] Nancy Solo [address] [phone] F: [phone] F: [phone] F: [phone] F: [phone] Physical Therapy Plan of Care Date of Evaluation: Date of Surgery: Diagnosis: This is a 57 yo male presenting to skilled PT with a script for LBP Assessment: This is a 57 yo male presenting to skilled PT with a script for LBP. Patient reporting back pain starting after slipping on the ice when shoveling snow almost 4 weeks ago. Pain is improving since then. Pain is located R side low back. Pain is described as mild. When asked when it bothers him he has a hard time describing anything but sitting can sometimes hurt. No pain with walking, standing, sleeping or lifting less than 20#. Assessment reveals pain that ranges from 1-5/10. Patient demos decreased lumbar ROM, strength of core and back and TTP at R side low back. He has a hard time explaining if or when he has pain and our plan is to introduce some stretching techniques and core stabs as a general low back health. Based on functional limitations, impaired QOL and pain management patient is a good candidate for skilled PT 1x/wk for 4wks. Frequency and Duration: The patient will be seen 1x/wk for 4wks Short Term Goals: I in HEP in 2 weeks Demo proper understanding of posture in sitting and transfers supine<>sit without increase in pain in 2wks Brake Press Operator Goals: Report 0/10 in 4 wks Demo normal ROM and strength without pain in 4 wks Improve oswestry by 5 points in 4wks Treatment Plan: Modalities to reduce pain, spasms and effusion. Manual therapy to restore motion and function. Therapeutic exercise to improve strength and flexibility. Neuromuscular re-education for posture and balance. Therapeutic activities to return to functional activities of daily living. Electronically signed by: Beatriz Wan PT Please sign and return to therapist. Thank you for your referral.
--- NOTE | 2022-06-08 10:18 | MHC.PT.DC ---
[facility] [place] Office [place] [facility] [place] [facility] [address] Nancy Solo [address] [phone] F: [phone] F: [phone] F: [phone] F: [phone] Physical Therapy Discharge Report Diagnosis: This is a 57 yo male presenting to skilled PT with a script for LBP Date of Surgery: Date of Evaluation: 05/09/22 Date of Discharge: 06/08/22 Treatments to Date: 3 Cancellations to Date: 0 No Shows to Date: 0 Discharge Status: Achieved Goals Improved Function Independent with HEP Patient Elected to Stop Discharge Summary: 06/07; Pt had no c/o pain after exs. Pt has all handouts to cont I with program. Pt is DC today per request. Demos WFL ROM and strength. Electronically signed by: Beatriz Wan PT Please sign and return to therapist. Thank you for your referral.
== END 2022-06-08 10:19 | disposition home or self-care (01) ==
LOC: HO.PTCHIC 13:00
PROVIDERS: PCP Internal Medicine; Visit Provider Internal Medicine
DX: M54.50 Low back pain, unspecified (principal)
CPT/HCPCS: 97110; 97161

== ENCOUNTER 2022-11-15 13:21 | Outpatient (AMB) | payer OTHER, SELFPAY ==
[2022-11-15 13:34] VITALS: BP 100/70; PULSE 81; O2SAT 97; BMI 19.0
--- NOTE | 2022-11-15 13:34 | MHC.PC.OV ---
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 Required: No Accompanied by: Self / Same As Patient Allergies No Known Allergies Allergy (Verified 11/15/22 13:59) Medication List - Last Reconciled 11/15/22 by Manjeet Wyatt MD albuterol sulfate 90 mcg/actuation (Ventolin HFA) 2 puffs inhalation Q4-6H PRN amlodipine 5 mg PO DAILY 90 days citalopram 20 mg PO DAILY 90 days fluticasone propionate 50 mcg/actuation 2 sprays intranasal DAILY fluticasone propionate 110 mcg/actuation (Flovent HFA) 2 puffs inhalation BID 30 days melatonin 3 mg PO BEDTIME PRN 30 days Tobacco use date assessed: 11/15/22 Dental Screening Dental Screen Date: 11/15/22 Did you have a dental visit in the last 12 months?: No Did you have a dental problem in the last 6 months where you did not have access to dental care?: No Was dental information given to patient?: No HPI Annual exam HPI Details Patient comes in today for his annual physical examination States that he feels okay He denies any headaches or dizziness Denies any chest pains, no SOB No nausea/vomiting, no abdominal pain No change in bowel habits noted Relates that he wakes up often (3 to 4 times) at night to use the bathroom but admits that he does drink a lot of water at night Denies any pain or burning sensation on urination and denies any urinary hesitancy Recalls that he had a colonoscopy done in the past at [place] but thinks that has been over 10 years ago now [facility] Medical History Insomnia Allergic rhinitis Depression Anxiety Alcoholism COPD (chronic obstructive pulmonary disease) Benign essential hypertension ETOH abuse Surgical History No pertinent past surgical history Family History Mother High blood pressure Alzheimer disease Father Diabetes Other Mental health problem Social History Housing: House Alcohol intake: current Alcohol intake frequency: former alcohol drinker Alcohol type: beer Patient Tobacco Use Status: Former Tobacco user Quit Date: quit 6 years ago e-Cigarette/Vaping Use: Never Used Second Hand Smoke Exposure: Yes service: No Current occupational status: unemployed Cognitive needs: Yes Hearing needs: No Vision needs: Yes Questionnaire PHQ-9 Over the last 2 weeks, how often have you been bothered by any of the following problems? 1. Little interest or pleasure in doing things: not at all 2. Feeling down, depressed, or hopeless: not at all 3. Trouble falling or staying asleep, or sleeping too much: not at all 4. Feeling tired or having little energy: not at all 5. Poor appetite or overeating: not at all 6. Feeling bad about yourself - or that you are a failure or have let yourself or your family down: not at all 7. Trouble concentrating on things, such as reading the newspaper or watching television: not at all 8. Moving or speaking so slowly that other people could have noticed. Or the opposite - being so fidgety or restless that you have been moving around a lot more than usual: not at all 9. Thoughts that you would be better off or of hurting yourself in some way: not at all Total score: 0 Depression Screening Interpretation: Positive Depression Screening Follow-up: Existing condition, In treatment and Community Mental Health Worker F/U Depression Screening Done: Yes 22638 - PHQ-9 Billing: Yes Source: Developed by Drs. Domingo Cummins, Tonya Hyde, Deep Blanco and colleagues, with an educational woody from [employer]. Thrive Questionnaire Date Thrive assessed: 11/15/22 I am a: Patient What is your living situation today?: I have a steady place to live Within the past 12 months, did the food you bought not last and you didn't have the money to get more?: Never true Within the past 12 months, did you worry whether your food would run out before you got money to buy more?: Never true Do you have trouble paying for medicines?: No Do you have trouble getting transportation to medical appointments?: No Do you have trouble paying your heating and electricity bill?: No Do you have trouble taking care of your child, family member or friend?: No Do you have trouble with day-to-day activities such as bathing, preparing meals, shopping, managing finances, etc.?: No Are you currently unemployed and looking for a job?: No Are you interested in more education?: No Please select the resources that you would like help with: None Currently or been in a relationship where the following occur: no concerns reported AUDIT C Alcohol Use Questionnaire (AUDIT-C) 1. How often do you have a drink containing alcohol?: Never 3. How often do you have six or more drinks on one occasion?: Never Total Score: 0 Score Reviewed/Action Taken: Yes YAIMA-7 AMB Questionnaire YAIMA-7 Date YAIMA - 7 assessed: 11/15/22 Feeling nervous, anxious, or on edge: 0 = Not at all Not being able to stop or control worryin = Not at all Worrying too much about different things: 0 = Not at all Trouble relaxin = Not at all Being so restless that it is hard to sit still: 0 = Not at all Becoming easily annoyed or irritable: 1 = Several days Feeling afraid as if something awful might happen: 0 = Not at all Total YAIMA-7 score (0-4 normal; 5-9 mild; 10-14 moderate; 15-21 severe): 1 Source: Developed by Drs. Domingo Cummins, Tonya Hyde, Deep Blanco and colleagues, with an educational woody from [employer]. Review of Systems Const Denies chills, Denies fatigue, Denies fever(s), Denies headache(s), Denies malaise and Denies weakness Eyes Denies blurry vision, Denies change in vision, Denies irritation and Denies itchy eyes ENT Denies dysphagia, Denies dizziness, Denies otalgia, Denies headache(s), Denies nasal congestion, Denies neck pain, Denies odynophagia and Denies sore throat Card Denies chest pain, Denies rapid heart rate, Denies irregular heart rhythm, Denies palpitations and Denies dyspnea Resp Denies chest congestion, Denies cough, Denies dyspnea and Denies wheezing GI Denies abdominal pain, Denies bloating, Denies constipation, Denies dysphagia, Denies heartburn, Denies diarrhea, Denies nausea, Denies odynophagia and Denies vomiting Denies hematuria, Denies difficulty urinating, Denies dysuria, Reports nocturia, Denies urinary frequency and Denies urinary urgency Musc Denies back pain, Denies arthralgias, Denies joint swelling, Denies muscle weakness and Denies neck pain Skin/Breast Denies change in pigmentation, Denies lesions, Denies rash and Denies unusual bruising Neuro Denies dizziness, Denies headache(s), Denies paresthesias and Denies weakness Endo Denies fatigue and Denies palpitations Aller/Immun Denies itchy eyes and Denies wheezing Physical exam (Primary Care) Vital Signs: Last Vital Signs Pulse 81 11/15/22 13:34 BP 100/70 11/15/22 13:34 Pulse Ox 97 11/15/22 13:34 Oxygen Delivery Method Room Air 11/15/22 13:34 BMI result Body Mass Index 19.0 Tobacco/Smoking Status: Tobacco use Status Tobacco use date assessed 11/15/22 11/15/22 13:36 Patient Tobacco Use Status Former Tobacco user 11/15/22 13:36 e-Cigarette/Vaping Use Never Used 11/15/22 13:36 PHQ-9: PHQ-9 Score PHQ-9: Total score 0 11/15/22 13:42 Depression Screening Interpretation: Positive Depression Screening Follow-up: Existing condition, In treatment and Community Mental Health Worker F/U Thrive Assessment: Date of Thrive Assessment Date Thrive assessed 11/15/22 11/15/22 13:36 Currently or been in a relationship where the following occur: no concerns reported Const General: no acute distress, alert and awake Orientation/consciousness: patient oriented x3 HENMT Head: Yes normocephalic and Yes atraumatic Ears: external ears normal, TM's normal bilaterally and EAC's normal General nose exam: No nasal discharge present Face and sinus: Yes normal facial exam and Yes sinuses nontender Teeth and gingiva: dentition normal Throat: Yes posterior oropharynx normal and Yes tonsils normal (no TP congestion) Eyes Eyelids: Yes eyelids normal Conjunctivae: conjunctivae normal Pupils: Equal, round and reactive pupils present EOM: EOMs intact bilaterally Neck Neck: Yes no lymphadenopathy and Yes supple Thyroid: Thyroid normal Resp Auscultation: clear to auscultation bilaterally, no rales and no wheezes Cardio Rate: regular rate Rhythm: regular rhythm Heart sounds: no murmurs GI Palpation (GI): Soft to palpation, nontender and No hepatosplenomegaly present Auscultation: normal bowel sounds General: Yes no CVA tenderness Back/Spine/Pelvis Back: no CVA tenderness Thoracic/Lumbar Spine: thoracic and lumbar spine normal to inspection Skin Lesions: no lesions Rashes: no rashes Neuro General: patient oriented x3, moves all extremities, no focal motor deficits and CN's II-XI intact bilaterally Cranial nerves: Yes Equal, round and reactive pupils present Cognition (Neuro): normal cognition Gait exam (Neuro): Normal gait present Extrem General: Yes no clubbing, cyanosis or edema Office Procedures Flu Questionnaire Does the patient have a severe egg allergy?: No Immunizations flu vacc [id number] 6mos up(PF) 60 mcg(15 mcgx4)/0.5 mL IM syringe Performing Provider: Manjeet Wyatt MD [facility] Documented (not given) by: Jose Turner on 11/15/22 13:42 Reason Not Given: Patient Refused Assessment and Plan Assessment & Plan (1) Annual physical exam: Code(s): Z00.00 - Encounter for general adult medical examination without abnormal findings Plan: Check labs (2) Benign essential hypertension: Code(s): I10 - Essential (primary) hypertension Plan: Reinforced low sodium diet - goal is systolic BP of 120 mm or less Continue Amlodipine 5 mg QD Patient is reminded to continue monitoring his blood pressure regularly (3) COPD (chronic obstructive pulmonary disease): Code(s): J44.9 - Chronic obstructive pulmonary disease, unspecified Qualifiers: COPD type: unspecified COPD Qualified Code(s): J44.9 - Chronic obstructive pulmonary disease, unspecified Plan: Stable Continue Flovent HFA 110 mcg 2 inhalations BID and Ventolin HFA 1 to 2 inhalations every 6 hour PRN (4) Allergic rhinitis: Code(s): J30.9 - Allergic rhinitis, unspecified Qualifiers: Allergic rhinitis trigger: unspecified Allergic rhinitis seasonality: unspecified Qualified Code(s): J30.9 - Allergic rhinitis, unspecified Plan: Continue Fluticasone 50 mcg nasal spray QD PRN (5) Elevated LFTs: Code(s): R79.89 - Other specified abnormal findings of blood chemistry Plan: LFTs were elevated on his labs last year, most likely in relation to his alcohol drinking at the time Will recheck his labs and LFTs for follow up (6) History of alcoholism: Code(s): F10.21 - Alcohol dependence, in remission Plan: Patient states that he has been sober and has not had any alcohol to drink in more than a year now (7) Nocturia: Code(s): R35.1 - Nocturia Plan: Discussed that this may be due to prostate issues but could also be just due to his increased drinking (water) at night Have advised patient to try cutting back on his water intake after dinner and to drink then only when thirsty to see if his nocturia will subside/improve; he can try to make up for his water intake/hydration at any time during the day (not at night) If not, then we are likely dealing with a prostate issue and will then address this more appropriatelt (8) Insomnia: Code(s): G47.00 - Insomnia, unspecified Qualifiers: Insomnia type: unspecified Qualified Code(s): G47.00 - Insomnia, unspecified Plan: Sleep hygiene reinforced Continue Melatonin 3 mg Q HS PRN Could not tolerate Trazodone 50 mg - states that just one dose knocked him out completely (9) Anxiety: Code(s): F41.9 - Anxiety disorder, unspecified Plan: Was referred to psychiatry for further evaluation and management and he is now going to [place] Is currently on Citalopram, which helps with his anxiety (10) Depression: Code(s): F32.A - Depression, unspecified Qualifiers: Depression Type: major depressive disorder Major depression recurrence: recurrent Active/Remission status: currently active Major depression episode severity: unspecified Qualified Code(s): F33.9 - Major depressive disorder, recurrent, unspecified Plan: Continue Citalopram 20 mg QD Follow up with psychiatry as scheduled (11) Colon cancer screening: Code(s): Z12.11 - Encounter for screening for malignant neoplasm of colon Plan: Will refer him to GI for repeat colonoscopy; reportedly had his last colonoscopy done over 10 years ago, likely at [place] Plan Follow up in 6 months Orders: Orders Influenza [id number] Immunization Today Z23 - Encounter for immunization Complete Blood Count Auto Diff Today I10 - Essential (primary) hypertension, R79.89 - Other specified abnormal findings of blood chemistry, Z00.00 - Encounter for general adult medical examination without abnormal findings Lipid Panel Today E78.00 - Pure hypercholesterolemia, unspecified, R79.89 - Other specified abnormal findings of blood chemistry, Z00.00 - Encounter for general adult medical examination without abnormal findings UA CC w/rflx Micro + Cult Today R30.0 - Dysuria, R79.89 - Other specified abnormal findings of blood chemistry, Z00.00 - Encounter for general adult medical examination without abnormal findings Comprehensive [place]. Panel Fast Today E78.00 - Pure hypercholesterolemia, unspecified, R79.89 - Other specified abnormal findings of blood chemistry, Z00.00 - Encounter for general adult medical examination without abnormal findings TSH reflex Free T4 Today E78.00 - Pure hypercholesterolemia, unspecified, R79.89 - Other specified abnormal findings of blood chemistry, Z00.00 - Encounter for general adult medical examination without abnormal findings Vitamin D 25-OH Total Today E55.9 - Vitamin D deficiency, unspecified, R79.89 - Other specified abnormal findings of blood chemistry, Z00.00 - Encounter for general adult medical examination without abnormal findings Prostate Specific Antigen Today N40.0 - Benign prostatic hyperplasia without lower urinary tract symptoms, R79.89 - Other specified abnormal findings of blood chemistry, Z00.00 - Encounter for general adult medical examination without abnormal findings Referrals Gastroenterology Referral Z12.11 - Encounter for screening for malignant neoplasm of colon Coding Level of Care Code Est Pt Prev Care 40-64y(43593) Diagnoses Annual physical exam Z00.00 Benign essential hypertension I10 Chronic obstructive pulmonary disease, unspecified COPD type J44.9 COPD type: unspecified COPD Allergic rhinitis, unspecified seasonality, unspecified trigger J30.9 Allergic rhinitis trigger: unspecified Allergic rhinitis seasonality: unspecified Elevated LFTs R79.89 History of alcoholism F10.21 Nocturia R35.1 Insomnia, unspecified type G47.00 Insomnia type: unspecified Anxiety F41.9 Episode of recurrent major depressive disorder, unspecified depression episode severity F33.9 Depression Type: major depressive disorder Major depression recurrence: recurrent Active/Remission status: currently active Major depression episode severity: unspecified Colon cancer screening Z12.11
== END 2022-11-15 14:18 | disposition home or self-care (01) ==
PROVIDERS: PCP Internal Medicine; Visit Provider Internal Medicine
DX: Z00.00 Encounter for general adult medical examination without abnormal findings (principal); J44.9 Chronic obstructive pulmonary disease, unspecified; F10.21 Alcohol dependence, in remission; F33.9 Major depressive disorder, recurrent, unspecified; I10 Essential (primary) hypertension; J30.9 Allergic rhinitis, unspecified; R79.89 Other specified abnormal findings of blood chemistry; R35.1 Nocturia; G47.00 Insomnia, unspecified; F41.9 Anxiety disorder, unspecified
CPT/HCPCS: 99396

== ENCOUNTER 2023-01-23 14:22 | Outpatient (REF) | payer OTHER, SELFPAY ==
--- NOTE | 2023-01-23 14:52 | PFT_ITS ---
Flows: FEV1: 101 % of predicted at 3.66 L FVC: 94 % of predicted at 4.95 L FEV1/FVC: 74 % Bronchodilator response: Present in small to medium airways only Volumes: Total lung capacity: 99 % of predicted at 7.35 L Residual volume: 95 % of predicted at 2.09 L Slow vital capacity: 99 % of predicted at 5.26 L Expiratory reserve volume: 104 % of predicted at 1.49 L Diffusion capacity: Mildly decreased. Impression: Reversible mild obstructive ventilatory defect with no bronchodilator response except in small to medium airways. Decreased diffusion capacity suggests emphysema. MTDD
== END 2023-01-23 14:23 | disposition home or self-care (01) ==
LOC: HO.RESP 14:22
PROVIDERS: PCP Internal Medicine; Visit Provider Internal Medicine
DX: J44.9 Chronic obstructive pulmonary disease, unspecified (principal)
CPT/HCPCS: 94010; 94727; 94729

== ENCOUNTER → 2023-01-23 14:52 | Outpatient (BNV) | payer OTHER, SELFPAY | PROVIDERS: PCP Internal Medicine; Visit Provider Internal Medicine Pulmonary Disease | DX: J44.9 Chronic obstructive pulmonary disease, unspecified (principal) | CPT/HCPCS: 94060; 94727; 94729 ==

== ENCOUNTER 2023-05-18 15:51 | Outpatient (AMB) | payer OTHER, SELFPAY ==
[2023-05-18 16:04] VITALS: BP 112/64; PULSE 85; O2SAT 96; BMI 21.3
--- NOTE | 2023-05-18 16:04 | MHC.PC.OV ---
Vital Signs 05/18/23 16:04 Height 5 ft 11 in Weight 152 lb 8 oz BMI 21.3 BP 112/64 Blood Pressure Location Lt brachial Position Sitting Pulse 85 Pulse Source Pulse Oximeter Pulse Oximetry (%) 96 Oxygen Delivery Method Room Air Intake Visit Reasons: HTN, insomnia Physician Anesthesiologist Required: No Accompanied by: Self / Same As Patient Allergies No Known Allergies Allergy (Verified 05/20/23 16:52) Medication List - Last Reconciled 05/20/23 by Manjeet Wyatt MD albuterol sulfate 90 mcg/actuation (Ventolin HFA) 2 puffs inhalation Q4-6H PRN amlodipine 5 mg PO DAILY 90 days citalopram 20 mg PO DAILY 90 days fluticasone propionate 110 mcg/actuation (Flovent HFA) 2 puffs inhalation BID 30 days fluticasone propionate 50 mcg/actuation 2 sprays intranasal DAILY melatonin 3 mg PO BEDTIME PRN 30 days Tobacco use date assessed: 05/18/23 Dental Screening Dental Screen Date: 05/18/23 Did you have a dental visit in the last 12 months?: Yes Did you have a dental problem in the last 6 months where you did not have access to dental care?: No Was dental information given to patient?: Patient has dentist HPI HTN, insomnia HPI Details Patient comes in today for his follow up visit States that he feels okay He denies any headaches or dizziness Denies any chest pains but reports experiencing (occasional) mild SOB at times recently No nausea/vomiting, no abdominal pain No change in bowel habits noted States that he was not able to get his previously ordered labs done after he was last seen but can go and get them done [facility] Medical History Insomnia Allergic rhinitis Depression Anxiety Alcoholism COPD (chronic obstructive pulmonary disease) Benign essential hypertension ETOH abuse Surgical History No pertinent past surgical history Family History Mother High blood pressure Alzheimer disease Father Diabetes Other Mental health problem Social History Housing: House Alcohol intake: current Alcohol intake frequency: former alcohol drinker Alcohol type: beer Patient Tobacco Use Status: Former Tobacco user Quit Date: quit 6 years ago e-Cigarette/Vaping Use: Never Used Second Hand Smoke Exposure: Yes service: No Current occupational status: unemployed Cognitive needs: Yes Hearing needs: No Vision needs: Yes Questionnaire PHQ-9 Over the last 2 weeks, how often have you been bothered by any of the following problems? 1. Little interest or pleasure in doing things: not at all 2. Feeling down, depressed, or hopeless: not at all 3. Trouble falling or staying asleep, or sleeping too much: not at all 4. Feeling tired or having little energy: not at all 5. Poor appetite or overeating: not at all 6. Feeling bad about yourself - or that you are a failure or have let yourself or your family down: not at all 7. Trouble concentrating on things, such as reading the newspaper or watching television: not at all 8. Moving or speaking so slowly that other people could have noticed. Or the opposite - being so fidgety or restless that you have been moving around a lot more than usual: not at all 9. Thoughts that you would be better off or of hurting yourself in some way: not at all Total score: 0 Depression Screening Interpretation: Positive Depression Screening Follow-up: Existing condition, In treatment and Community Mental Health Worker F/U Depression Screening Done: Yes 93870 - PHQ-9 Billing: Yes Source: Developed by Drs. Domingo Cummins, Tonya Hyde, Deep Blanco and colleagues, with an educational woody from [employer]. Thrive Questionnaire Date Thrive assessed: 05/18/23 I am a: Patient What is your living situation today?: I have a steady place to live Within the past 12 months, did the food you bought not last and you didn't have the money to get more?: Never true Within the past 12 months, did you worry whether your food would run out before you got money to buy more?: Never true Do you have trouble paying for medicines?: No Do you have trouble getting transportation to medical appointments?: No Do you have trouble paying your heating and electricity bill?: No Do you have trouble taking care of your child, family member or friend?: No Do you have trouble with day-to-day activities such as bathing, preparing meals, shopping, managing finances, etc.?: No Are you currently unemployed and looking for a job?: No Are you interested in more education?: No Please select the resources that you would like help with: None Currently or been in a relationship where the following occur: no concerns reported THRIVE Score: 0 AUDIT C Alcohol Use Questionnaire (AUDIT-C) 1. How often do you have a drink containing alcohol?: Never 3. How often do you have six or more drinks on one occasion?: Never Total Score: 0 Score Reviewed/Action Taken: Yes YAIMA-7 AMB Questionnaire YAIMA-7 Date YAIMA - 7 assessed: 05/18/23 Feeling nervous, anxious, or on edge: 0 = Not at all Not being able to stop or control worryin = Not at all Worrying too much about different things: 0 = Not at all Trouble relaxin = Not at all Being so restless that it is hard to sit still: 0 = Not at all Becoming easily annoyed or irritable: 0 = Not at all Feeling afraid as if something awful might happen: 0 = Not at all Total YAIMA-7 score (0-4 normal; 5-9 mild; 10-14 moderate; 15-21 severe): 0 Source: Developed by Drs. Domingo Cummins, Tonya Hyde, Deep Blanoc and colleagues, with an educational woody from [employer]. YAIMA-7 Assessment Billing YAIMA-7 Assessment Tool: YAIMA-7 Assessment 15151 Review of Systems Const Denies chills, Denies fatigue, Denies fever(s) and Denies headache(s) ENT Denies dysphagia, Denies dizziness, Denies otalgia, Denies headache(s), Denies neck pain, Denies odynophagia and Denies sore throat Card Denies chest pain, Denies palpitations and Reports dyspnea (mild, occasionally) Resp Denies cough and Reports dyspnea (mild, occasionally) GI Denies abdominal pain, Denies constipation, Denies dysphagia, Denies heartburn, Denies diarrhea, Denies nausea, Denies odynophagia and Denies vomiting Denies dysuria, Denies nocturia and Denies urinary frequency Musc Denies back pain and Denies neck pain Skin/Breast Denies rash Neuro Denies dizziness and Denies headache(s) Endo Denies fatigue and Denies palpitations Physical exam (Primary Care) Vital Signs: Last Vital Signs Pulse 85 05/18/23 16:04 BP 112/64 05/18/23 16:04 Pulse Ox 96 05/18/23 16:04 Oxygen Delivery Method Room Air 05/18/23 16:04 BMI result Body Mass Index 21.3 Tobacco/Smoking Status: Tobacco use Status Tobacco use date assessed 05/18/23 05/18/23 16:11 Patient Tobacco Use Status Former Tobacco user 05/18/23 16:08 e-Cigarette/Vaping Use Never Used 05/18/23 16:08 PHQ-9: PHQ-9 Score PHQ-9: Total score 0 05/18/23 16:32 Depression Screening Interpretation: Positive Depression Screening Follow-up: Existing condition, In treatment and Community Mental Health Worker F/U Thrive Assessment: Date of Thrive Assessment Date Thrive assessed 05/18/23 05/18/23 16:08 Currently or been in a relationship where the following occur: no concerns reported Const General: no acute distress and alert HENMT Ears: TM's normal bilaterally and EAC's normal Throat: Yes posterior oropharynx normal and Yes tonsils normal (no TP congestion) Neck Neck: Yes no lymphadenopathy and Yes supple Thyroid: Thyroid normal Resp Auscultation: clear to auscultation bilaterally, no rales and no wheezes Cardio Rate: regular rate Rhythm: regular rhythm Heart sounds: no murmurs GI Palpation (GI): Soft to palpation and nontender Auscultation: normal bowel sounds General: Yes no CVA tenderness Back/Spine/Pelvis Back: no CVA tenderness Thoracic/Lumbar Spine: No lumbar spinal tenderness Skin Rashes: no rashes Extrem General: Yes no clubbing, cyanosis or edema Assessment and Plan Assessment & Plan (1) Benign essential hypertension: Code(s): I10 - Essential (primary) hypertension Plan: Reinforced low sodium diet - goal is systolic BP of 120 mm or less Continue Amlodipine 5 mg QD Patient is again reminded to continue monitoring his blood pressure regularly (2) COPD (chronic obstructive pulmonary disease): Code(s): J44.9 - Chronic obstructive pulmonary disease, unspecified Qualifiers: COPD type: unspecified COPD Qualified Code(s): J44.9 - Chronic obstructive pulmonary disease, unspecified Plan: Reports experiencing mild SOB at times recently - will send him for chest x-rays [facility] for further evaluation Continue Flovent HFA 110 mcg 2 inhalations BID and Ventolin HFA 1 to 2 inhalations every 6 hour PRN (3) Allergic rhinitis: Code(s): J30.9 - Allergic rhinitis, unspecified Qualifiers: Allergic rhinitis trigger: unspecified Allergic rhinitis seasonality: unspecified Qualified Code(s): J30.9 - Allergic rhinitis, unspecified Plan: Continue Fluticasone 50 mcg nasal spray QD PRN (4) Elevated LFTs: Code(s): R79.89 - Other specified abnormal findings of blood chemistry Plan: LFTs were elevated on his labs last year, most likely in relation to his alcohol drinking at the time Will recheck his labs and LFTs [facility] for follow up (5) History of alcoholism: Code(s): F10.21 - Alcohol dependence, in remission Plan: Patient states that he has been sober and has not had any alcohol to drink in more than a year now (6) Insomnia: Code(s): G47.00 - Insomnia, unspecified Qualifiers: Insomnia type: unspecified Qualified Code(s): G47.00 - Insomnia, unspecified Plan: Sleep hygiene reinforced Continue Melatonin 3 mg Q HS PRN He could not tolerate Trazodone 50 mg in the past - states that just one dose knocked him out completely (7) Anxiety: Code(s): F41.9 - Anxiety disorder, unspecified Plan: Was referred to psychiatry for further evaluation and management and he is now going to [place] Is currently on Citalopram, which helps with his anxiety (8) Depression: Code(s): F32.A - Depression, unspecified Qualifiers: Depression Type: major depressive disorder Major depression recurrence: recurrent Active/Remission status: currently active Major depression episode severity: unspecified Qualified Code(s): F33.9 - Major depressive disorder, recurrent, unspecified Plan: Continue Citalopram 20 mg QD Follow up with psychiatry as scheduled Plan To return in 6 months for his next annual physical examination Orders: Orders XR chest 2V 05/18/23 R06.00 - Dyspnea, unspecified Coding Level of Care Code Est Pt Level 4 (19236) Diagnoses Benign essential hypertension I10 Chronic obstructive pulmonary disease, unspecified COPD type J44.9 COPD type: unspecified COPD Allergic rhinitis, unspecified seasonality, unspecified trigger J30.9 Allergic rhinitis trigger: unspecified Allergic rhinitis seasonality: unspecified Elevated LFTs R79.89 History of alcoholism F10.21 Insomnia, unspecified type G47.00 Insomnia type: unspecified Anxiety F41.9 Episode of recurrent major depressive disorder, unspecified depression episode severity F33.9 Depression Type: major depressive disorder Major depression recurrence: recurrent Active/Remission status: currently active Major depression episode severity: unspecified Additional Codes YAIMA-7 Assessment Billing - YAIMA-7 Assessment Tool: YAIMA-7 Assessment 79138 ([id number])
== END 2023-05-18 16:37 | disposition home or self-care (01) ==
PROVIDERS: PCP Internal Medicine; Visit Provider Internal Medicine
DX: I10 Essential (primary) hypertension (principal); J44.9 Chronic obstructive pulmonary disease, unspecified; F10.21 Alcohol dependence, in remission; F33.9 Major depressive disorder, recurrent, unspecified; J30.9 Allergic rhinitis, unspecified; R79.89 Other specified abnormal findings of blood chemistry; G47.00 Insomnia, unspecified; F41.9 Anxiety disorder, unspecified
CPT/HCPCS: 99214

== ENCOUNTER 2023-10-04 11:43 | Outpatient (REF) | payer OTHER, SELFPAY ==
--- NOTE | ~2023-10-04 | XR_ITS ---
EXAMINATION: XR CHEST, 2 VIEWS CLINICAL INFORMATION: Dyspnea, unspecified. COMPARISON: 05/18/2021 TECHNIQUE: PA and lateral views of the chest were obtained. FINDINGS: Lungs are hyperexpanded though clear. No consolidation, pneumothorax, or pleural effusion. Cardiac and mediastinal contours are normal. Pulmonary vasculature is unremarkable. Trachea is midline. Minimal degenerative disc disease midthoracic spine. XR/XR chest 2V IMPRESSION: No acute pulmonary findings. . Electronically signed by: Valdemar Villarreal MD 10/29/2023 05:23 PM EDT
[2023-10-04 12:06] LABS: MANUAL DIFF FLAG NO
[2023-10-04 12:38] LABS: Basophils Absolute Auto 0.1 X10*3/uL (0.0-0.2); Basophils Percent Auto 1.5 % (0-2); Eosinophils Absolute Auto 0.3 X10*3/uL (0.0-0.4); Hematocrit 39.9 % (42.0-52.0); Hemoglobin 13.8 g/dl (14.0-18.0); Imm Gran Abs Auto 0.02 X10*3/uL (0.00-0.03); Imm Gran Pct Auto 0.4 % (0.0-0.4); Lymphocytes Percent Auto 37.5 % (20-40); Mean Corpuscular HGB Conc 34.6 g/dl (31.0-36.0); Mean Corpuscular Volume 89.7 fL (80.0-98.0); Monocytes Absolute Auto 0.6 X10*3/uL (0.1-1.2); Monocytes Percent Auto 10.7 % (2-11); Neutrophils Absolute Auto 2.4 x10*3/uL (2.0-8.3); Neutrophils Percent Auto 43.9 % (45-73); Platelet Count 207 X10*3/uL (160-400); Red Blood Count 4.45 X10*6/uL (4.60-5.80); Red Cell Distribution Width 12.4 % (11.0-16.0); White Blood Count 5.3 X10*3/uL (4.8-10.8)
[2023-10-04 13:11] LABS: Alanine Aminotransferase 15 U/L (0-40); Albumin Level 4.4 g/dL (3.5-5.0); Alkaline Phosphatase 61 U/L (39-117); Anion Gap 12 (12-20); Aspartate Amino Transferase 16 U/L (5-37); Bilirubin Total 0.7 mg/dL (0.0-1.0); Blood Urea Nitrogen 14 mg/dL (9-16); Calcium 9.5 mg/dL (8.4-10.2); Carbon Dioxide 27 mmol/L (22-29); Chloride 106 mmol/L (96-108); Cholesterol 186 mg/dL (<200); Estimated Glomerular Filt Rate > 60; Glucose Fasting 96 mg/dL (60-99); HDL Cholesterol 50 mg/dL (>40); LDL Cholesterol Calculated 126 mg/dL (<100); Potassium 3.9 mmol/L (3.3-5.1); Sodium 141 mmol/L (135-145); Total Protein 6.8 g/dL (6.5-8.0); Triglycerides 54 mg/dL (<150)
[2023-10-04 13:26] LABS: Vitamin D 25-OH Total 14.5 ng/mL (>30)
[2023-10-04 13:27] LABS: Prostate Specific Antigen 0.49 ng/mL (<0.05-4.0)
[2023-10-04 13:54] LABS: Appearance Urine Clear; Color Urine Yellow; Glucose Urine UA Negative (Negative); Leukocyte Esterase Urine Negative (Negative); Nitrite Urine Negative (Negative); Specific Gravity - Urine 1.015 (1.005-1.025); Urine Blood Negative (Negative); Urine Ketones Negative (Negative); Urine Protein Negative (Neg-Trace)
== END 2023-10-04 11:44 | disposition home or self-care (01) ==
LOC: HO.XRAY 11:43
PROVIDERS: PCP Internal Medicine; Visit Provider Internal Medicine
DX: Z00.00 Encounter for general adult medical examination without abnormal findings (principal); N40.0 Benign prostatic hyperplasia without lower urinary tract symptoms; I10 Essential (primary) hypertension; R79.89 Other specified abnormal findings of blood chemistry; E78.00 Pure hypercholesterolemia, unspecified; R30.0 Dysuria; E55.9 Vitamin D deficiency, unspecified; R06.00 Dyspnea, unspecified
CPT/HCPCS: 36415; 71046; 80053; 80061; 81003; 82306; 84153; 84443; 85025

== ENCOUNTER 2023-11-19 13:40 | Outpatient (AMB) | payer OTHER, SELFPAY ==
--- NOTE | 2023-11-19 13:41 | A.OFFPC_ITS ---
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 Required: No Accompanied by: Self / Same As Patient Allergies No Known Allergies Allergy (Verified 11/19/23 14:14) Medication List - Last Reconciled 11/19/23 by Manjeet Wyatt MD albuterol sulfate 90 mcg/actuation (Ventolin HFA) 2 puffs inhalation Q4-6H PRN amlodipine 5 mg PO DAILY 90 days budesonide 90 mcg/actuation (Pulmicort Flexhaler) 1 inh inhalation BID citalopram 20 mg PO DAILY 90 days fluticasone propionate 50 mcg/actuation 2 sprays intranasal DAILY melatonin 3 mg PO BEDTIME PRN 30 days Tobacco use date assessed: 11/19/23 Dental Screening Dental Screen Date: 11/19/23 Did you have a dental visit in the last 12 months?: No Did you have a dental problem in the last 6 months where you did not have access to dental care?: No Was dental information given to patient?: No HPI Annual Exam HPI Details Patient comes in today for his annual physical examination States that he has been experiencing trouble with his breathing ever since he was forced to switch out from his previous inhaler (Flovent HFA) to Pulmicort Flexhaler about a month or two ago due to his insurance declining to continue covering Flovent and also due to its unavailability Relates that he has been experiencing frequent SOB and [place] and his chest feels tight often and he's had to use his Albuterol inhaler much more often than he normally has to He denies any fever or sore throat; denies any headaches or dizziness Denies any exertional chest pains No nausea/vomiting, no abdominal pain No change in bowel habits noted He denies any acute urinary symptoms He had his follow up labs done a few weeks ago - to discuss his results States that his previous pre-colonoscopy GI appointment was rescheduled and he is now scheduled to be seen next month on 01/09/2024, after which he anticipates his colonoscopy will be scheduled [facility] Medical History Vitamin D deficiency Insomnia Allergic rhinitis Depression Anxiety Alcoholism COPD (chronic obstructive pulmonary disease) Benign essential hypertension ETOH abuse Surgical History No pertinent past surgical history Family History Mother High blood pressure Alzheimer disease Father Diabetes Other Mental health problem Social History Housing: House Alcohol intake: current Alcohol intake frequency: former alcohol drinker Alcohol type: beer Patient Tobacco Use Status: Former Tobacco user e-Cigarette/Vaping Use: Never Used Second Hand Smoke Exposure: Yes service: No Current occupational status: unemployed Cognitive needs: Yes Hearing needs: No Vision needs: Yes Questionnaire PHQ-9 Over the last 2 weeks, how often have you been bothered by any of the following problems? 1. Little interest or pleasure in doing things: several days 2. Feeling down, depressed, or hopeless: nearly every day 3. Trouble falling or staying asleep, or sleeping too much: several days 4. Feeling tired or having little energy: nearly every day 5. Poor appetite or overeating: nearly every day 6. Feeling bad about yourself - or that you are a failure or have let yourself or your family down: nearly every day 7. Trouble concentrating on things, such as reading the newspaper or watching television: nearly every day 8. Moving or speaking so slowly that other people could have noticed. Or the opposite - being so fidgety or restless that you have been moving around a lot more than usual: not at all 9. Thoughts that you would be better off or of hurting yourself in some way: not at all Total score: 17 Depression Screening Interpretation: Positive Depression Screening Follow-up: Existing condition and In treatment Depression Screening Done: Yes 23442 - PHQ-9 Billing: Yes Source: Developed by Drs. Domingo Cummins, Tonya Hyde, Deep Blanco and colleagues, with an educational woody from [employer]. Thrive Questionnaire Date Thrive assessed: 11/19/23 I am a: Patient What is your living situation today?: I have a steady place to live Within the past 12 months, did the food you bought not last and you didn't have the money to get more?: Often true Within the past 12 months, did you worry whether your food would run out before you got money to buy more?: Often true Do you have trouble paying for medicines?: No Do you have trouble getting transportation to medical appointments?: No Do you have trouble paying your heating and electricity bill?: Yes Do you have trouble taking care of your child, family member or friend?: No Do you have trouble with day-to-day activities such as bathing, preparing meals, shopping, managing finances, etc.?: No Are you currently unemployed and looking for a job?: No Are you interested in more education?: No Please select the resources that you would like help with: Food Currently or been in a relationship where the following occur: No concerns reported THRIVE Score: 3 AUDIT C Alcohol Use Questionnaire (AUDIT-C) 1. How often do you have a drink containing alcohol?: Never 3. How often do you have six or more drinks on one occasion?: Never Total Score: 0 Score Reviewed/Action Taken: Yes YAIMA-7 AMB Questionnaire YAIMA-7 Date YAIMA - 7 assessed: 11/19/23 Feeling nervous, anxious, or on edge: 0 = Not at all Not being able to stop or control worryin = Not at all Worrying too much about different things: 0 = Not at all Trouble relaxin = Nearly every day Being so restless that it is hard to sit still: 0 = Not at all Becoming easily annoyed or irritable: 3 = Nearly every day Feeling afraid as if something awful might happen: 0 = Not at all Total YAIMA-7 score (0-4 normal; 5-9 mild; 10-14 moderate; 15-21 severe): 6 Source: Developed by Drs. Domingo Cummins, Tonya Hyde, Deep Blanco and colleagues, with an educational woody from [employer]. Review of Systems Const Denies chills, Denies fatigue, Denies fever(s), Denies headache(s), Denies malaise and Denies weakness Eyes Denies blurry vision, Denies change in vision, Denies irritation and Denies itchy eyes ENT Denies dysphagia, Denies dizziness, Denies otalgia, Denies headache(s), Denies nasal congestion, Denies neck pain, Denies odynophagia and Denies sore throat Card Denies chest pain, Denies rapid heart rate, Denies irregular heart rhythm, Denies palpitations, Reports dyspnea (frequently since his inhaler was switched - see HPI) and Reports dyspnea on exertion Resp Denies chest congestion, Denies cough, Reports dyspnea (frequently since his inhaler was switched - see HPI), Reports dyspnea on exertion and Denies wheezing GI Denies abdominal pain, Denies bloating, Denies constipation, Denies dysphagia, Denies heartburn, Denies diarrhea, Denies nausea, Denies odynophagia and Denies vomiting Denies hematuria, Denies difficulty urinating, Denies dysuria, Denies urinary frequency and Denies urinary urgency Musc Denies back pain, Denies arthralgias, Denies joint swelling, Denies muscle weakness and Denies neck pain Skin/Breast Denies change in pigmentation, Denies lesions, Denies rash and Denies unusual bruising Neuro Denies dizziness, Denies headache(s), Denies paresthesias and Denies weakness Endo Denies fatigue and Denies palpitations Aller/Immun Denies itchy eyes and Denies wheezing Physical exam (Primary Care) Vital Signs: Last Vital Signs Pulse 73 11/19/23 13:42 BP 100/64 11/19/23 13:42 Pulse Ox 98 11/19/23 13:42 Oxygen Delivery Method Room Air 11/19/23 13:42 BMI result Body Mass Index 20.5 Tobacco/Smoking Status: Tobacco use Status Tobacco use date assessed 11/19/23 11/19/23 13:52 Patient Tobacco Use Status Former Tobacco user 11/19/23 13:52 e-Cigarette/Vaping Use Never Used 11/19/23 13:52 PHQ-9: PHQ-9 Score PHQ-9: Total score 17 11/19/23 14:15 Depression Screening Interpretation: Positive Depression Screening Follow-up: Existing condition and In treatment Thrive Assessment: Date of Thrive Assessment Date Thrive assessed 11/19/23 11/19/23 13:52 Currently or been in a relationship where the following occur: No concerns reported Const General: no acute distress, alert and awake Orientation/consciousness: patient oriented x3 HENMT Head: Yes normocephalic and Yes atraumatic Ears: external ears normal, TM's normal bilaterally and EAC's normal General nose exam: No nasal discharge present Face and sinus: Yes normal facial exam and Yes sinuses nontender Teeth and gingiva: dentition normal Throat: Yes posterior oropharynx normal and Yes tonsils normal (no TP congestion) Eyes Eyelids: Yes eyelids normal Conjunctivae: conjunctivae normal Pupils: Equal, round and reactive pupils present EOM: EOMs intact bilaterally Neck Neck: Yes no lymphadenopathy and Yes supple Thyroid: Thyroid normal Resp Auscultation: clear to auscultation bilaterally, no rales and no wheezes Cardio Rate: regular rate Rhythm: regular rhythm Heart sounds: no murmurs GI Palpation (GI): Soft to palpation, nontender and No hepatosplenomegaly present Auscultation: normal bowel sounds General: Yes no CVA tenderness Back/Spine/Pelvis Back: no CVA tenderness Thoracic/Lumbar Spine: thoracic and lumbar spine normal to inspection Skin Lesions: no lesions Rashes: no rashes Neuro General: patient oriented x3, moves all extremities, no focal motor deficits and CN's II-XI intact bilaterally Cranial nerves: Yes Equal, round and reactive pupils present Cognition (Neuro): normal cognition Gait exam (Neuro): Normal gait present Extrem General: Yes no clubbing, cyanosis or edema Results Reviewed Results Reviewed: Laboratory Tests 05/18/21 05/18/21 15:11 16:24 WBC 3.9 L Hgb 14.6 Hct 43.1 Plt Count 135 L Sodium 139 Potassium 4.4 Creatinine 0.83 Estimated GFR > 60 Random Glucose 109 Calcium 9.7 D AST 74 H ALT 82 H Ur Specific [place] 1.010 Urine Protein NEG Urine Glucose (UA) NEG Urine Blood NEG Laboratory Tests 10/04/23 10/04/23 12:00 12:03 Triglycerides 54 Cholesterol 186 LDL Cholesterol, Calc 126 H HDL Cholesterol 50 Prostate Specific Ag 0.49 25-OH Vitamin D Total 14.5 L TSH 3.10 Urine Nitrite Negative Ur Leukocyte Esterase Negative Coding Level of Care Code Est Pt Prev Care 40-64y(29141) Diagnoses Annual physical exam Z00.00 Benign essential hypertension I10 Chronic obstructive pulmonary disease, unspecified COPD type J44.9 COPD type: unspecified COPD Allergic rhinitis, unspecified seasonality, unspecified trigger J30.9 Allergic rhinitis trigger: unspecified Allergic rhinitis seasonality: unspecified Elevated LFTs R79.89 Vitamin D deficiency E55.9 History of alcoholism F10.21 Insomnia, unspecified type G47.00 Insomnia type: unspecified Anxiety F41.9 Episode of recurrent major depressive disorder, unspecified depression episode severity F33.9 Depression Type: major depressive disorder Major depression recurrence: recurrent Active/Remission status: currently active Major depression episode severity: unspecified Assessment & Plan Assessment & Plan (1) Annual physical exam: Code(s): Z00.00 - Encounter for general adult medical examination without abnormal findings Category: Medical Plan: Results of his labs done a few weeks ago reviewed and discussed with patient He is scheduled to be seen by GI next month for his precolonoscopy visit - states that his previous appointment was rescheduled (2) Benign essential hypertension: Code(s): I10 - Essential (primary) hypertension Category: Medical Plan: Reinforced low sodium diet - goal is systolic BP of 120 mm or less Continue Amlodipine 5 mg QD Patient is again reminded to continue monitoring his blood pressure regularly (3) COPD (chronic obstructive pulmonary disease): Code(s): J44.9 - Chronic obstructive pulmonary disease, unspecified Category: Medical Qualifiers: COPD type: unspecified COPD Qualified Code(s): J44.9 - Chronic obstructive pulmonary disease, unspecified Plan: Patient reports experiencing frequent SOB and [place] ever since his Flovent HFA was switched over to Pulmicort Flexhaler 90 mcg BID Will try switching him from Pulmicort Flexhaler to Symbicort 160-4.5 mcg 1 inhalation BID Continue Ventolin HFA 1 to 2 inhalations every 6 hour PRN His chest x-rays done a few weeks ago (10/04/2023) came out normal (4) Allergic rhinitis: Code(s): J30.9 - Allergic rhinitis, unspecified Category: Medical Qualifiers: Allergic rhinitis trigger: unspecified Allergic rhinitis seasonality: unspecified Qualified Code(s): J30.9 - Allergic rhinitis, unspecified Plan: Continue Fluticasone 50 mcg nasal spray QD PRN (5) Elevated LFTs: Code(s): R79.89 - Other specified abnormal findings of blood chemistry Category: Medical Plan: Patient is advised that his LFTs are completely back to normal on his labs done a few weeks ago Will continue to monitor his LFTs regularly (6) Vitamin D deficiency: Code(s): E55.9 - Vitamin D deficiency, unspecified Category: Medical Plan: He is advised that his Vitamin D level is low on his recent labs Will start him on Vitamin D3 2000 units QD (7) History of alcoholism: Code(s): F10.21 - Alcohol dependence, in remission Category: Medical Plan: Patient states that he has been sober and has not had any alcohol to drink in more than a year now (8) Insomnia: Code(s): G47.00 - Insomnia, unspecified Category: Medical Qualifiers: Insomnia type: unspecified Qualified Code(s): G47.00 - Insomnia, unspecified Plan: Sleep hygiene reinforced Continue Melatonin 3 mg Q HS PRN He could not tolerate Trazodone 50 mg in the past - states that just one dose knocked him out completely (9) Anxiety: Code(s): F41.9 - Anxiety disorder, unspecified Category: Medical Plan: He is currently on Citalopram, which helps with his anxiety Follow up with psychiatry ([facility]) as scheduled (10) Depression: Code(s): F32.A - Depression, unspecified Category: Medical Qualifiers: Depression Type: major depressive disorder Major depression recurrence: recurrent Active/Remission status: currently active Major depression episode severity: unspecified Qualified Code(s): F33.9 - Major depressive disorder, recurrent, unspecified Plan: Continue Citalopram 20 mg QD Follow up with psychiatry as scheduled Plan Follow up in 4 months Medications: New cholecalciferol (vitamin D3) 50 mcg PO DAILY 90 days 90 caps 3RF E55.9 - Vitamin D deficiency, unspecified budesonide-formoterol 160-4.5 mcg/actuation (Symbicort) 1 inh inhalation BID 30 days 10.2 grams 3RF J44.9 - Chronic obstructive pulmonary disease, unspecified Discontinued budesonide 90 mcg/actuation (Pulmicort Flexhaler) Discontinued Reason: Doctor's Order 1 inh inhalation BID 1 ea 2RF
[2023-11-19 13:42] VITALS: BP 100/64; PULSE 73; O2SAT 98; BMI 20.5
== END 2023-11-19 14:30 | disposition home or self-care (01) ==
PROVIDERS: PCP Internal Medicine; Visit Provider Internal Medicine
DX: Z00.00 Encounter for general adult medical examination without abnormal findings (principal); J44.9 Chronic obstructive pulmonary disease, unspecified; F10.21 Alcohol dependence, in remission; F33.9 Major depressive disorder, recurrent, unspecified; I10 Essential (primary) hypertension; J30.9 Allergic rhinitis, unspecified; R79.89 Other specified abnormal findings of blood chemistry; E55.9 Vitamin D deficiency, unspecified; G47.00 Insomnia, unspecified; F41.9 Anxiety disorder, unspecified

== ENCOUNTER → 2023-11-19 13:40 | Outpatient (BNVA) | payer OTHER, SELFPAY | PROVIDERS: PCP Internal Medicine; Visit Provider Internal Medicine | DX: Z00.01 Encounter for general adult medical examination with abnormal findings (principal); I10 Essential (primary) hypertension; J44.9 Chronic obstructive pulmonary disease, unspecified; J30.9 Allergic rhinitis, unspecified; R79.89 Other specified abnormal findings of blood chemistry; E55.9 Vitamin D deficiency, unspecified; F10.21 Alcohol dependence, in remission; G47.00 Insomnia, unspecified; F41.9 Anxiety disorder, unspecified; F33.9 Major depressive disorder, recurrent, unspecified; Z79.899 Other long term (current) drug therapy | CPT/HCPCS: 96127; 99396 ==

== ENCOUNTER 2024-03-24 14:52 | Outpatient (AMB) | payer OTHER, SELFPAY ==
[2024-03-24 15:24] VITALS: BP 122/64; PULSE 86; O2SAT 98; BMI 21.3
--- NOTE | 2024-03-24 15:24 | A.OFFPC_ITS ---
Vital Signs 03/24/24 15:24 Height 5 ft 11 in Weight 153 lb BMI 21.3 BP 122/64 Blood Pressure Location Lt brachial Position Sitting Pulse 86 Pulse Source Pulse Oximeter Pulse Oximetry (%) 98 Oxygen Delivery Method Room Air Intake Visit Reasons: COPD Digital Recruiter Required: No Accompanied by: Self / Same As Patient Allergies No Known Allergies Allergy (Verified 03/24/24 15:42) Medication List - Last Reconciled 03/24/24 by Manjeet Wyatt MD albuterol sulfate 90 mcg/actuation (Ventolin HFA) 2 puffs inhalation Q4-6H PRN amlodipine 5 mg PO DAILY 90 days budesonide-formoterol 160-4.5 mcg/actuation (Symbicort) 1 inh inhalation BID 30 days cholecalciferol (vitamin D3) 50 mcg PO DAILY 90 days citalopram 20 mg PO DAILY 90 days fluticasone propionate 50 mcg/actuation 2 sprays intranasal DAILY melatonin 3 mg PO BEDTIME PRN 30 days Tobacco use date assessed: 03/24/24 Dental Screening Dental Screen Date: 03/24/24 Did you have a dental visit in the last 12 months?: No Did you have a dental problem in the last 6 months where you did not have access to dental care?: No Was dental information given to patient?: No HPI COPD HPI Details Patient comes in today for his follow up visit States that he feels okay and is doing well on his current inhalers He denies any headaches or dizziness Denies any chest pains, no SOB - states that his breathing has improved on his current inhalers No nausea/vomiting, no abdominal pain No change in bowel habits noted He also brought in some legal papers (RE: subpoena) that he needs to have filled out Thinks that he may also need a few of his Rx refilled PFSH Medical History Vitamin D deficiency Insomnia Allergic rhinitis Depression Anxiety Alcoholism COPD (chronic obstructive pulmonary disease) Benign essential hypertension ETOH abuse Surgical History No pertinent past surgical history Family History Mother High blood pressure Alzheimer disease Father Diabetes Other Mental health problem Social History Housing: House Alcohol intake: current Alcohol intake frequency: former alcohol drinker Alcohol type: beer Patient Tobacco Use Status: Former Tobacco user e-Cigarette/Vaping Use: Never Used Second Hand Smoke Exposure: Yes service: No Current occupational status: unemployed Cognitive needs: Yes Hearing needs: No Vision needs: Yes Questionnaire PHQ-9 Over the last 2 weeks, how often have you been bothered by any of the following problems? 1. Little interest or pleasure in doing things: several days 2. Feeling down, depressed, or hopeless: nearly every day 3. Trouble falling or staying asleep, or sleeping too much: several days 4. Feeling tired or having little energy: nearly every day 5. Poor appetite or overeating: nearly every day 6. Feeling bad about yourself - or that you are a failure or have let yourself or your family down: nearly every day 7. Trouble concentrating on things, such as reading the newspaper or watching television: nearly every day 8. Moving or speaking so slowly that other people could have noticed. Or the opposite - being so fidgety or restless that you have been moving around a lot more than usual: not at all 9. Thoughts that you would be better off or of hurting yourself in some way: not at all Total score: 17 Depression Screening Interpretation: Positive Depression Screening Follow-up: Existing condition and In treatment Depression Screening Done: Yes 17754 - PHQ-9 Billing: Yes Source: Developed by Drs. Domingo Cummins, Tonya Hyde, Deep Blanco and colleagues, with an educational woody from [email or web address]. Thrive Questionnaire Date Thrive assessed: 03/24/24 I am a: Patient What is your living situation today?: I have a steady place to live Within the past 12 months, did the food you bought not last and you didn't have the money to get more?: Often true Within the past 12 months, did you worry whether your food would run out before you got money to buy more?: Often true Do you have trouble paying for medicines?: No Do you have trouble getting transportation to medical appointments?: No Do you have trouble paying your heating and electricity bill?: Yes Do you have trouble taking care of your child, family member or friend?: No Do you have trouble with day-to-day activities such as bathing, preparing meals, shopping, managing finances, etc.?: No Are you currently unemployed and looking for a job?: No Are you interested in more education?: No Please select the resources that you would like help with: Food Currently or been in a relationship where the following occur: No concerns reported THRIVE Score: 3 AUDIT C Alcohol Use Questionnaire (AUDIT-C) 1. How often do you have a drink containing alcohol?: Never 3. How often do you have six or more drinks on one occasion?: Never Total Score: 0 Score Reviewed/Action Taken: Yes YAIMA-7 AMB Questionnaire YAIMA-7 Date YAIMA - 7 assessed: 03/24/24 Feeling nervous, anxious, or on edge: 0 = Not at all Not being able to stop or control worryin = Not at all Worrying too much about different things: 0 = Not at all Trouble relaxin = Nearly every day Being so restless that it is hard to sit still: 0 = Not at all Becoming easily annoyed or irritable: 3 = Nearly every day Feeling afraid as if something awful might happen: 0 = Not at all Total YAIMA-7 score (0-4 normal; 5-9 mild; 10-14 moderate; 15-21 severe): 6 Source: Developed by Drs. Domingo Cummins, Tonya Hyde, Deep Blanco and colleagues, with an educational woody from [employer]. Review of Systems Const Denies chills, Denies fatigue, Denies fever(s) and Denies headache(s) ENT Denies dysphagia, Denies dizziness, Denies otalgia, Denies headache(s), Denies neck pain, Denies odynophagia and Denies sore throat Card Denies chest pain, Denies irregular heart rhythm, Denies palpitations and Reports dyspnea on exertion (mild) Resp Denies chest congestion, Denies cough and Reports dyspnea on exertion (mild) GI Denies abdominal pain, Denies constipation, Denies dysphagia, Denies heartburn, Denies diarrhea, Denies nausea, Denies odynophagia and Denies vomiting Denies difficulty urinating, Denies dysuria and Denies urinary frequency Musc Denies back pain, Denies arthralgias and Denies neck pain Skin/Breast Denies rash Neuro Denies dizziness, Denies headache(s) and Denies paresthesias Endo Denies fatigue and Denies palpitations Physical exam (Primary Care) Vital Signs: Last Vital Signs Pulse 86 03/24/24 15:24 BP 122/64 03/24/24 15:24 Pulse Ox 98 03/24/24 15:24 Oxygen Delivery Method Room Air 03/24/24 15:24 BMI result Body Mass Index 21.3 Tobacco/Smoking Status: Tobacco use Status Tobacco use date assessed 03/24/24 03/24/24 15:26 Patient Tobacco Use Status Former Tobacco user 03/24/24 15:26 e-Cigarette/Vaping Use Never Used 03/24/24 15:26 PHQ-9: PHQ-9 Score PHQ-9: Total score 17 03/24/24 16:01 Depression Screening Interpretation: Positive Depression Screening Follow-up: Existing condition and In treatment Thrive Assessment: Date of Thrive Assessment Date Thrive assessed 03/24/24 03/24/24 15:26 Currently or been in a relationship where the following occur: No concerns reported Const General: no acute distress and alert HENMT Ears: TM's normal bilaterally and EAC's normal Throat: Yes posterior oropharynx normal and Yes tonsils normal (no TP congestion) Neck Neck: Yes supple and No lymphadenopathy Thyroid: Thyroid normal Resp Auscultation: clear to auscultation bilaterally, no rales and no wheezes Cardio Rate: regular rate Rhythm: regular rhythm Heart sounds: no murmurs GI Palpation (GI): Soft to palpation and nontender Auscultation: normal bowel sounds General: Yes no CVA tenderness Back/Spine/Pelvis Back: no CVA tenderness Thoracic/Lumbar Spine: No lumbar spinal tenderness Skin Rashes: no rashes Extrem General: Yes no clubbing, cyanosis or edema Coding Level of Care Code Est Pt Level 4 (22605) Diagnoses Benign essential hypertension I10 Chronic obstructive pulmonary disease, unspecified COPD type J44.9 COPD type: unspecified COPD Allergic rhinitis, unspecified seasonality, unspecified trigger J30.9 Allergic rhinitis trigger: unspecified Allergic rhinitis seasonality: unspecified Elevated LFTs R79.89 Vitamin D deficiency E55.9 History of alcoholism F10.21 Insomnia, unspecified type G47.00 Insomnia type: unspecified Anxiety F41.9 Episode of recurrent major depressive disorder, unspecified depression episode severity F33.9 Depression Type: major depressive disorder Major depression recurrence: recurrent Active/Remission status: currently active Major depression episode severity: unspecified Additional Codes PHQ-9 - 18388 - PHQ-9 Billing: Yes ([id number]) Assessment & Plan Assessment & Plan (1) Benign essential hypertension: Code(s): I10 - Essential (primary) hypertension Category: Medical Plan: Reinforced low sodium diet - goal is systolic BP of 120 mm or less Continue Amlodipine 5 mg QD Patient is again reminded to continue monitoring his blood pressure regularly (2) COPD (chronic obstructive pulmonary disease): Code(s): J44.9 - Chronic obstructive pulmonary disease, unspecified Category: Medical Qualifiers: COPD type: unspecified COPD Qualified Code(s): J44.9 - Chronic obstructive pulmonary disease, unspecified Plan: Patient reports experiencing frequent SOB and [place] ever since his Flovent HFA was switched over to Pulmicort Flexhaler 90 mcg BID States that his symptoms have improved a lot since he was switched to Symbicort 160-4.5 mcg 1 inhalation BID a few months ago Continue Ventolin HFA 1 to 2 inhalations every 6 hour PRN His chest x-rays done a few weeks ago (10/04/2023) came out normal (3) Allergic rhinitis: Code(s): J30.9 - Allergic rhinitis, unspecified Category: Medical Qualifiers: Allergic rhinitis trigger: unspecified Allergic rhinitis seasonality: unspecified Qualified Code(s): J30.9 - Allergic rhinitis, unspecified Plan: Continue Fluticasone 50 mcg nasal spray QD PRN (4) Elevated LFTs: Code(s): R79.89 - Other specified abnormal findings of blood chemistry Category: Medical Plan: Patient is advised that his LFTs are completely back to normal on his labs done a few months ago Will continue to monitor his LFTs regularly (5) Vitamin D deficiency: Code(s): E55.9 - Vitamin D deficiency, unspecified Category: Medical Plan: Continu Vitamin D3 2000 units QD (6) History of alcoholism: Code(s): F10.21 - Alcohol dependence, in remission Category: Medical Plan: Patient states that he has been sober and has not had any alcohol to drink in more than a year now (7) Insomnia: Code(s): G47.00 - Insomnia, unspecified Category: Medical Qualifiers: Insomnia type: unspecified Qualified Code(s): G47.00 - Insomnia, unspecified Plan: Sleep hygiene reinforced Continue Melatonin 3 mg Q HS PRN He could not tolerate Trazodone 50 mg in the past - states that just one dose knocked him out completely (8) Anxiety: Code(s): F41.9 - Anxiety disorder, unspecified Category: Medical Plan: He is currently on Citalopram, which helps with his anxiety Follow up with psychiatry ([facility]) as scheduled (9) Depression: Code(s): F32.A - Depression, unspecified Category: Medical Qualifiers: Depression Type: major depressive disorder Major depression recurrence: recurrent Active/Remission status: currently active Major depression episode severity: unspecified Qualified Code(s): F33.9 - Major depressive disorder, recurrent, unspecified Plan: Continue Citalopram 20 mg QD Follow up with psychiatry as scheduled Plan Follow-up in 4 months
--- OUTSIDE RECORDS SUMMARY | 2024-03-24 16:06 | XMS_ITS | Clinical Summary ---
Author Organization [employer] [facility] it Address [address] [place] [address] Care Team Providers Care Instrument And Control Service Person Name Role Phone Estela Blake MD Primary Care Provider [phone] Surgical History Surgery Date Site/Laterality Comments OTHER SURGICAL HISTORY PROCEDURE: DENIES PREVIOUS SURGERY Medical History Medical History Date Comments Asthma DX:Asthma Family History Medical History Relation Name Comments Depression Brother 1 Mental illness Brother 2 mild retardat ion Diabetes Father 2008 Heart attack Father Other: no illness Mother Breast cancer Neg Hx Colon cancer Neg Hx Prostate cancer Neg Hx Relation Name Status Comments Brother 1 Brother 2 Brother 3 Alive MR Father Maternal Grandfather Maternal Grandmother Mother Alive healthy Paternal Grandfather Paternal Grandmother Social History Tobacco Use Types Packs/Day Years Used Date Smoking Tobacco: Former Cigarettes Q uit: 02/12/2003 Smokeless Tobacco: Never Alcohol Use Standard Drinks/Week Comments Yes 0.8 (1 standard drink = 0.6 oz p ure alcohol) Sex and Gender Information Value Date Recorded Sex Assigned at Not on file Legal Sex Male 7:32 AM EST Gender Identity Not on file Sexual Orientation Not on file Obstetrics History Plan of Treatment Health Maintenance Due Date Last Done Comments Pneumococcal Vaccine: Pediat rics (0 to 5 Years) and At-Risk Patients (6 to 64 Years) (1 of 2 - PCV) [birth year]14/1971 Hepatitis B Vaccines (1 of 3 - 19+ 3-dose series) 1984 Zoster Vaccines (1 of 2) 04/14/2015 DTaP,Tdap,and Td Vaccines (2 - Td or Tdap) 09/25/2021 09/26/2011 Cholesterol Screening (Lipid Panel) 01/15/2022 Colorectal Cancer Screening: Colonoscopy 01/15/2022 Depression Screening 01/15/2022 HIV Screening 01/15/2022 Hepatitis C Screening 01/15/2022 Social Influencers of Health Screening 01/15/2022 Hypertension/CHF/CAD Annual BMP Blood Test 01/27/2022 COVID-19 Vaccine ( - 2023-2 5 season) 2023 Influenza Vaccine (#1) 2023 HIB Vaccines Aged Out No longer eligi ble based on patient's age to complete this topic HPV Vaccines Aged Out No longer eligi ble based on patient's age to complete this topic Hepatitis A Vaccines Aged Out No long er eligible based on patient's age to complete this topic IPV Vaccines Aged Out No longer eligi ble based on patient's age to complete this topic MMR Vaccines Aged Out No longer eligi ble based on patient's age to complete this topic Meningococcal ACWY Vaccine Aged Out N o longer eligible based on patient's age to complete this topic RSV Immunization Patients Un henrik 20 months Aged Out No longer eligible b ased on patient's age to complete this topic Varicella Vaccines Aged Out No longer eligible based on patient's age to complete this topic Care Teams Instrument And Control Service Person Relationship Specialty Start Date End Date Estela Blake MD [address] [place] [address] PCP - General Internal Medicine 08/24/20
== END 2024-03-24 15:51 | disposition home or self-care (01) ==
PROVIDERS: PCP Internal Medicine; Visit Provider Internal Medicine
DX: I10 Essential (primary) hypertension (principal); J44.9 Chronic obstructive pulmonary disease, unspecified; J30.9 Allergic rhinitis, unspecified; R79.89 Other specified abnormal findings of blood chemistry; E55.9 Vitamin D deficiency, unspecified; F10.21 Alcohol dependence, in remission; G47.00 Insomnia, unspecified; F41.9 Anxiety disorder, unspecified; F33.9 Major depressive disorder, recurrent, unspecified

== ENCOUNTER → 2024-03-24 14:52 | Outpatient (BNVA) | payer OTHER, SELFPAY | PROVIDERS: PCP Internal Medicine; Visit Provider Internal Medicine | DX: I10 Essential (primary) hypertension (principal); J44.9 Chronic obstructive pulmonary disease, unspecified; J30.9 Allergic rhinitis, unspecified; R79.89 Other specified abnormal findings of blood chemistry; E55.9 Vitamin D deficiency, unspecified; F10.21 Alcohol dependence, in remission; F41.9 Anxiety disorder, unspecified; F33.9 Major depressive disorder, recurrent, unspecified; G47.00 Insomnia, unspecified | CPT/HCPCS: 96127; 99212 ==

== ENCOUNTER 2024-05-20 14:23 | Outpatient (AMB) | payer OTHER, SELFPAY ==
[2024-05-20 14:37] VITALS: BP 140/66; PULSE 84; O2SAT 99; BMI 21.1
--- NOTE | 2024-05-20 14:37 | A.OFFVIS_ITS ---
Vital Signs 05/20/24 14:37 Height 5 ft 11 in Weight 151 lb 3.794 oz BMI 21.1 BP 140/66 H Blood Pressure Location Rt brachial Position Sitting Pulse 84 Pulse Source Pulse Oximeter Pulse Oximetry (%) 99 Oxygen Delivery Method Room Air Intake Visit Reasons: [place] Consultation r/s 03/03/23 Intake Note: NEW PATIENT for initial colo screening. Chief Complaint; Pt denies any GI concerns at this time. Pt denies any pertinent FMHx. Mobile Ui Designer Required: No Accompanied by: Self / Same As Patient Allergies No Known Allergies Allergy (Verified 05/20/24 14:37) HPI HPI [place] Consultation r/s 03/03/23: Details: 59 year old? male with past medical history of insomnia, transaminitis, depression, anxiety, history of ETOH use, sober for the last 2 years, COPD, hypertension is here today for pre colonoscopy screening.? Patient was sent to us by his PCP.? This is his first colonoscopy screening.? Patient denies any gastrointestinal symptoms in the past or at present.? Denies any personal or family history of gastrointestinal disease, colon polyps, or CRC.? Denies history of difficulty with sedation or anesthesia in the past.? Negative for history of sleep apnea.? Denies any history of cardiac, renal, pulmonary, or hepatic disease.?? No history of infectious? diseases like hepatitis A, B, C, HIV or tuberculosis.? Patient is not on any anticoagulation PFSH Medical History Vitamin D deficiency Insomnia Allergic rhinitis Depression Anxiety Alcoholism COPD (chronic obstructive pulmonary disease) Benign essential hypertension ETOH abuse Surgical History No pertinent past surgical history Family History Mother High blood pressure Alzheimer disease Father Diabetes Other Mental health problem Social History Housing: House Alcohol intake: current Alcohol intake frequency: former alcohol drinker Alcohol type: beer Patient Tobacco Use Status: Former Tobacco user e-Cigarette/Vaping Use: Never Used Second Hand Smoke Exposure: Yes service: No Current occupational status: unemployed Cognitive needs: Yes Hearing needs: No Vision needs: Yes Review of Systems Const Denies weight gain and Denies weight loss ENT Reports no additional complaints, Denies dysphagia and Denies odynophagia Card Reports no additional complaints Resp Reports no additional complaints GI Denies abdominal pain, Denies belching, Denies melena, Denies bloating, Denies change in bowel habits, Denies dysphagia, Denies excessive flatus, Denies dyspepsia, Denies heartburn, Denies diarrhea, Denies loose stools, Denies nausea, Denies odynophagia and Denies vomiting Reports no additional complaints Musc Reports no additional complaints Neuro Reports no additional complaints Psych Reports no additional complaints Endo Reports no additional complaints Physical Exam Const General: healthy appearing, no acute distress and well developed Nutritional Appearance: well nourished Orientation/consciousness: patient oriented x3 Resp Effort & Inspection: normal respiratory effort, able to speak in complete sentences, no tracheal deviation and symmetric chest movement Auscultation: clear to auscultation bilaterally Cardio Rate: regular rate GI Inspection: Yes normal to inspection and No distended Palpation (GI): Soft to palpation, not firm, nontender and No hepatosplenomegaly present Auscultation: normal bowel sounds General: Yes no CVA tenderness Back/Spine/Pelvis Back: no CVA tenderness Skin General skin exam: elasticity normal, turgor normal and dry skin Neuro General: patient oriented x3 Psych Appearance: grossly normal Mental Status: mental status grossly normal Assessment & Plan Assessment & Plan (1) Colon cancer screening: Code(s): Z12.11 - Encounter for screening for malignant neoplasm of colon Category: Medical Plan Patient denies any GI, cardiac or respiratory symptoms.? Denies any issues with anesthesia in the past.? Denies any history of sleep apnea.? No history infectious diseases in the past or present.? Not on any anticoagulation therapy.? No family or personal history of colon cancer or polyps.? Patient denies melena, hematochezia, unintentional weight loss or ribbon like stools.? Discussed at length the pre-procedure,? prep, diet & medications as well as what to expect prior, during and after the procedure.?? Stressed the importance of good bowel prep.? Recommended the use of Vaseline or Calmoseptine OTC & baby w ipes with bowel movements to promote comfort.? ?Patient reports that he stopped drinking 2 years ago as well as stopped smoking. Patient verbalizes understanding and agrees to plan of care.? He was given the opportunity to ask questions and all questions answered.? We will see him after the procedure.? Medications: New bisacodyl (Dulcolax (bisacodyl)) take 4 tabs at noon the day before your colonoscopy 20 mg (4 x 5 mg) PO ONCE 1 day 4 tabs 0RF Z12.11 - Encounter for screening for malignant neoplasm of colon polyethylene glycol 3350 (Miralax) As directed by gastroenterology department at [facility] 238 grams PO ONCE 238 grams 0RF Z12.11 - Encounter for screening for malignant neoplasm of colon Coding Level of Care Code New Pt Level 3 (29354) Diagnoses Colon cancer screening Z12.11 Time Spent (min) 40 Comment 30 minutes spent with patient and additional 10 minutes spent reviewing his records
--- OUTSIDE RECORDS SUMMARY | 2024-05-20 17:32 | XMS_ITS | Clinical Summary ---
Author Organization [facility] [facility] ity Address [address] [place] [address] Care Team Providers Care Cryogenics Repairer Name Role Phone Estela Blake MD Primary Care Provider [phone] Surgical History Surgery Date Site/Laterality Comments OTHER [...] Health Maintenance Due Date Last Done Comments Hepatitis B Vaccines (1 of 3 - 19+ 3-dose series) 1984 Pneumococcal Vaccine: 50+ Ye ars (1 of 2 - PCV) 1984 Pneumococcal Vaccine: Pediat rics (0 to 5 Years) and At-Risk Patients (6 to 64 Years) (1 of 2 - PCV) 1984 Zoster Vaccines (1 of 2) 04/14/2015 DTaP,Tdap,and Td Vaccines (2 - Td or Tdap) 09/25/2021 09/26/2011 Cholesterol Screening (Lipid Panel) 01/15/2022 Colorectal Cancer Screening: Colonoscopy 01/15/2022 Depression Screening 01/15/2022 HIV Screening 01/15/2022 Hepatitis C Screening 01/15/2022 Social Influencers of Health Screening 01/15/2022 Hypertension/CHF/CAD Annual BMP Blood Test 01/27/2022 COVID-19 Vaccine ( - 2023-2 5 season) 2023 Influenza Vaccine (#1) 2023 RSV Immunization Adult Patie nts (1 - 1-dose 75+ series) 2040 HIB Vaccines Aged Out No longer eligi [...] patient's age to complete this topic Meningococcal B Vaccine Aged Out No l onger eligible based on patient's age to complete this topic RSV Immunization Patients Un henrik 20 months Aged Out No longer eligible b ased on patient's age to complete this topic Varicella Vaccines Aged Out No longer eligible based on patient's age to complete this topic Care Teams Cryogenics Repairer Relationship Specialty Start Date End Date Estela Blake MD [address] [place] [address] PCP - General Internal Medicine 08/24/20
== END 2024-05-20 15:19 | disposition home or self-care (01) ==
LOC: HO.HGI 14:24
PROVIDERS: PCP Internal Medicine; Visit Provider Nurse Practitioner Family
DX: Z01.818 Encounter for other preprocedural examination (principal); Z12.11 Encounter for screening for malignant neoplasm of colon
CPT/HCPCS: 99202

== ENCOUNTER → 2024-05-20 14:23 | Outpatient (BNVA) | payer OTHER, SELFPAY | PROVIDERS: PCP Internal Medicine; Visit Provider Nurse Practitioner Family | DX: Z12.11 Encounter for screening for malignant neoplasm of colon (principal) | CPT/HCPCS: 99202 ==

== ENCOUNTER 2024-08-21 15:31 | Outpatient (AMB) | payer OTHER, SELFPAY ==
--- OUTSIDE RECORDS SUMMARY | 2024-08-21 15:33 | XMS_ITS | Clinical Summary ---
[facility] Organization [facility] Address [address] [place] [address] Care Team Providers Care Electrician Bus Name Role Phone Estela Blake MD Primary Care Provider [phone] Surgical History Surgery Date Site/Laterality Comments OTHER [...] Pneumococcal Vaccine: 50+ Ye ars (1 of 1 - PCV) 04/14/2015 Zoster Vaccines (1 of 2) 04/14/2015 DTaP,Tdap,and Td Vaccines (2 - Td or Tdap) 09/25/2021 09/26/2011 COVID-19 Vaccine ( - 2023-2 5 season) 2023 Influenza Vaccine (#1) 2024 RSV Immunization Adult Patie nts (1 - [...] on patient's age to complete this topic Pneumococcal Vaccine: Pediat rics (0 to 5 Years) and At-Risk Patients (6 to 49 Years) Aged Out No longer eligi ble based on patient's age to complete this topic RSV Immunization Patients Un henrik 20 months Aged Out No longer eligible b ased on patient's age to complete this topic Varicella Vaccines Aged Out No longer eligible based on patient's age to complete this topic Care Teams Electrician Bus Relationship Specialty Start Date End Date Estela Blake MD [address] [place] [address] PCP - General Internal Medicine 08/24/20
[2024-08-21 15:37] VITALS: BP 108/62; PULSE 80; O2SAT 97; BMI 22.1
--- NOTE | 2024-08-21 15:37 | A.OFFPC_ITS ---
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 Institutional Sales Required: No Accompanied by: Self / Same As Patient Allergies No Known Allergies Allergy (Verified 08/21/24 20:57) Medication List - Last Reconciled 08/21/24 by Manjeet Wyatt MD albuterol sulfate 90 mcg/actuation (Ventolin HFA) 2 puffs inhalation Q4-6H PRN amlodipine 5 mg PO DAILY 90 days bisacodyl (Dulcolax (bisacodyl)) 20 mg (4 x 5 mg) PO ONCE 1 day budesonide-formoterol 160-4.5 mcg/actuation (Symbicort) 1 inh inhalation BID 30 days cholecalciferol (vitamin D3) 50 mcg PO DAILY 90 days citalopram 20 mg PO DAILY 90 days fluticasone propionate 50 mcg/actuation 2 sprays intranasal DAILY melatonin 3 mg PO BEDTIME PRN 30 days polyethylene glycol 3350 (Miralax) 238 grams PO ONCE Tobacco use date assessed: 08/21/24 Dental Screening Dental Screen Date: 08/21/24 Did you have a dental visit in the last 12 months?: No Did you have a dental problem in the last 6 months where you did not have access to dental care?: No Was dental information given to patient?: No HPI 4 month f/u HPI Details Patient comes in today for his follow-up visit States that he feels okay He denies any headaches or dizziness Denies any chest pains, no shortness of breath No nausea/vomiting, no abdominal pain No change in bowel habits noted PFSH Medical History Vitamin D deficiency Insomnia Allergic rhinitis Depression Anxiety Alcoholism COPD (chronic obstructive pulmonary disease) Benign essential hypertension ETOH abuse Surgical History No pertinent past surgical history Family History Mother High blood pressure Alzheimer disease Father Diabetes Other Mental health problem Social History Housing: House Alcohol intake: current Alcohol intake frequency: former alcohol drinker Alcohol type: beer Patient Tobacco Use Status: Former Tobacco user e-Cigarette/Vaping Use: Never Used Second Hand Smoke Exposure: Yes service: No Current occupational status: unemployed Cognitive needs: Yes Hearing needs: No Vision needs: Yes Questionnaire PHQ-9 Over the last 2 weeks, how often have you been bothered by any of the following problems? 1. Little interest or pleasure in doing things: nearly every day 2. Feeling down, depressed, or hopeless: several days 3. Trouble falling or staying asleep, or sleeping too much: several days 4. Feeling tired or having little energy: nearly every day 5. Poor appetite or overeating: not at all 6. Feeling bad about yourself - or that you are a failure or have let yourself or your family down: not at all 7. Trouble concentrating on things, such as reading the newspaper or watching television: not at all 8. Moving or speaking so slowly that other people could have noticed. Or the opposite - being so fidgety or restless that you have been moving around a lot more than usual: not at all 9. Thoughts that you would be better off or of hurting yourself in some way: not at all Total score: 8 Depression Screening Interpretation: Positive Depression Screening Follow-up: Existing condition and In treatment Depression Screening Done: Yes 40236 - PHQ-9 Billing: Yes Source: Developed by Drs. Domingo Cummins, Tonya Hyde, Deep Blanco and colleagues, with an educational woody from [employer]. Thrive Questionnaire Date Thrive assessed: 08/21/24 I am a: Patient What is your living situation today?: I have a steady place to live Within the past 12 months, did the food you bought not last and you didn't have the money to get more?: Never true Within the past 12 months, did you worry whether your food would run out before you got money to buy more?: Never true Do you have trouble paying for medicines?: No Do you have trouble getting transportation to medical appointments?: No Do you have trouble paying your heating and electricity bill?: No Do you have trouble taking care of your child, family member or friend?: No Do you have trouble with day-to-day activities such as bathing, preparing meals, shopping, managing finances, etc.?: No Are you currently unemployed and looking for a job?: I choose not to answer this question Are you interested in more education?: No Please select the resources that you would like help with: None Currently or been in a relationship where the following occur: No concerns reported THRIVE Score: 0 AUDIT C Alcohol Use Questionnaire (AUDIT-C) 1. How often do you have a drink containing alcohol?: Never 3. How often do you have six or more drinks on one occasion?: Never Total Score: 0 Score Reviewed/Action Taken: Yes YAIMA-7 AMB Questionnaire YAIMA-7 Date YAIMA - 7 assessed: 08/21/24 Feeling nervous, anxious, or on edge: 0 = Not at all Not being able to stop or control worryin = Not at all Worrying too much about different things: 0 = Not at all Trouble relaxin = Not at all Being so restless that it is hard to sit still: 0 = Not at all Becoming easily annoyed or irritable: 1 = Several days Feeling afraid as if something awful might happen: 0 = Not at all Total YAIMA-7 score (0-4 normal; 5-9 mild; 10-14 moderate; 15-21 severe): 1 Source: Developed by Drs. Domingo Cummins, Tonya Hyde, Deep Blanco and colleagues, with an educational woody from [employer]. Review of Systems Const Denies chills, Denies fatigue, Denies fever(s) and Denies headache(s) ENT Denies dysphagia, Denies dizziness, Denies otalgia, Denies headache(s), Denies neck pain, Denies odynophagia and Denies sore throat Card Denies chest pain, Denies irregular heart rhythm, Denies palpitations and Re ports dyspnea on exertion (mild) Resp Denies chest congestion, Denies cough and Reports dyspnea on exertion (mild) GI Denies abdominal pain, Denies constipation, Denies dysphagia, Denies heartburn, Denies diarrhea, Denies nausea, Denies odynophagia and Denies vomiting Denies difficulty urinating, Denies dysuria and Denies urinary frequency Musc Denies back pain, Denies arthralgias and Denies neck pain Skin/Breast Denies rash Neuro Denies dizziness, Denies headache(s) and Denies paresthesias Endo Denies fatigue and Denies palpitations Physical exam (Primary Care) Vital Signs: Last Vital Signs Pulse 80 08/21/24 15:37 BP 108/62 08/21/24 15:37 Pulse Ox 97 08/21/24 15:37 Oxygen Delivery Method Room Air 08/21/24 15:37 BMI result Body Mass Index 22.1 Tobacco/Smoking Status: Tobacco use Status Tobacco use date assessed 08/21/24 08/21/24 15:42 Patient Tobacco Use Status Former Tobacco user 08/21/24 15:42 e-Cigarette/Vaping Use Never Used 08/21/24 15:42 PHQ-9: PHQ-9 Score PHQ-9: Total score 8 08/21/24 20:53 Depression Screening Interpretation: Positive Depression Screening Follow-up: Existing condition and In treatment Thrive Assessment: Date of Thrive Assessment Date Thrive assessed 08/21/24 08/21/24 15:42 Currently or been in a relationship where the following occur: No concerns reported Const General: no acute distress and alert HENMT Ears: TM's normal bilaterally and EAC's normal Throat: Yes posterior oropharynx normal and Yes tonsils normal (no TP congestion) Neck Neck: Yes supple and No lymphadenopathy Thyroid: Thyroid normal Resp Auscultation: clear to auscultation bilaterally, no rales and no wheezes Cardio Rate: regular rate Rhythm: regular rhythm Heart sounds: no murmurs GI Palpation (GI): Soft to palpation and nontender Auscultation: normal bowel sounds General: Yes no CVA tenderness Back/Spine/Pelvis Back: no CVA tenderness Thoracic/Lumbar Spine: No lumbar spinal tenderness Skin Rashes: no rashes Extrem General: Yes no clubbing, cyanosis or edema Coding Level of Care Code Est Pt Level 4 (76716) Diagnoses Benign essential hypertension I10 Chronic obstructive pulmonary disease, unspecified COPD type J44.9 COPD type: unspecified COPD Allergic rhinitis, unspecified seasonality, unspecified trigger J30.9 Allergic rhinitis trigger: unspecified Allergic rhinitis seasonality: unspecified Elevated LFTs R79.89 Vitamin D deficiency E55.9 History of alcoholism F10.21 Insomnia, unspecified type G47.00 Insomnia type: unspecified Anxiety F41.9 Episode of recurrent major depressive disorder, unspecified depression episode severity F33.9 Depression Type: major depressive disorder Major depression recurrence: recurrent Active/Remission status: currently active Major depression episode severity: unspecified Additional Codes PHQ-9 - 65509 - PHQ-9 Billing: Yes ([id number]) Assessment & Plan Assessment & Plan (1) Benign essential hypertension: Code(s): I10 - Essential (primary) hypertension Category: Medical Plan: Reinforced low sodium diet - goal is systolic BP of 120 mm or less Continue Amlodipine 5 mg QD Patient is again reminded to continue monitoring his blood pressure regularly (2) COPD (chronic obstructive pulmonary disease): Code(s): J44.9 - Chronic obstructive pulmonary disease, unspecified Category: Medical Qualifiers: COPD type: unspecified COPD Qualified Code(s): J44.9 - Chronic obstructive pulmonary disease, unspecified Plan: Controlled Continue Symbicort 160-4.5 mcg 1 inhalation BID and Ventolin HFA 1 to 2 inhalations every 6 hour PRN Chest x-rays done back on 10/04/2023 came out normal (3) Allergic rhinitis: Code(s): J30.9 - Allergic rhinitis, unspecified Category: Medical Qualifiers: Allergic rhinitis trigger: unspecified Allergic rhinitis seasonality: unspecified Qualified Code(s): J30.9 - Allergic rhinitis, unspecified Plan: Continue Fluticasone 50 mcg nasal spray QD PRN (4) Elevated LFTs: Code(s): R79.89 - Other specified abnormal findings of blood chemistry Category: Medical Plan: His LFTs were completely back to normal when they were last checked in September 2023 Will continue to monitor his LFTs regularly (5) Vitamin D deficiency: Code(s): E55.9 - Vitamin D deficiency, unspecified Category: Medical Plan: Continue Vitamin D3 2000 units QD Will recheck his labs in 4 months for follow up (6) History of alcoholism: Code(s): F10.21 - Alcohol dependence, in remission Category: Medical Plan: Patient states that he has been sober and has not had any alcohol to drink in about 2 years now (7) Insomnia: Code(s): G47.00 - Insomnia, unspecified Category: Medical Qualifiers: Insomnia type: unspecified Qualified Code(s): G47.00 - Insomnia, unspecified Plan: Sleep hygiene reinforced Continue Melatonin 3 mg Q HS PRN He could not tolerate Trazodone 50 mg in the past - states that just one dose knocked him out completely (8) Anxiety: Code(s): F41.9 - Anxiety disorder, unspecified Category: Medical Plan: He is currently on Citalopram, which helps with his anxiety Follow up with psychiatry ([facility]) as scheduled (9) Depression: Code(s): F32.A - Depression, unspecified Category: Medical Qualifiers: Depression Type: major depressive disorder Major depression recurrence: recurrent Active/Remission status: currently active Major depression episode severity: unspecified Qualified Code(s): F33.9 - Major depressive disorder, recurrent, unspecified Plan: Continue Citalopram 20 mg QD Follow up with psychiatry as scheduled Plan Follow-up in 4 months He is reminded to get his follow-up labs done prior to his next appointment Orders: Orders Complete Blood Count Auto Diff 4 Months D64.9 - Anemia, unspecified UA CC w/rflx Micro + Cult 4 Months R30.0 - Dysuria Comprehensive [place]. Panel Fast 4 Months E78.00 - Pure hypercholesterolemia, unspecified Lipid Panel 4 Months E78.00 - Pure hypercholesterolemia, unspecified TSH reflex Free T4 4 Months E78.00 - Pure hypercholesterolemia, unspecified Vitamin D 25-OH Total 4 Months E55.9 - Vitamin D deficiency, unspecified
== END 2024-08-21 15:55 | disposition home or self-care (01) ==
LOC: HO.HMCH 15:31
PROVIDERS: PCP Internal Medicine; Visit Provider Internal Medicine
DX: I10 Essential (primary) hypertension (principal); J44.9 Chronic obstructive pulmonary disease, unspecified; F10.21 Alcohol dependence, in remission; J30.9 Allergic rhinitis, unspecified; R79.89 Other specified abnormal findings of blood chemistry; E55.9 Vitamin D deficiency, unspecified; G47.00 Insomnia, unspecified; F41.9 Anxiety disorder, unspecified; F33.9 Major depressive disorder, recurrent, unspecified

== ENCOUNTER → 2024-08-21 15:31 | Outpatient (BNVA) | payer OTHER, SELFPAY | PROVIDERS: PCP Internal Medicine; Visit Provider Internal Medicine | DX: I10 Essential (primary) hypertension (principal); J44.9 Chronic obstructive pulmonary disease, unspecified; J30.9 Allergic rhinitis, unspecified; R79.89 Other specified abnormal findings of blood chemistry; E55.9 Vitamin D deficiency, unspecified; F10.21 Alcohol dependence, in remission; G47.00 Insomnia, unspecified; F41.9 Anxiety disorder, unspecified; F33.9 Major depressive disorder, recurrent, unspecified | CPT/HCPCS: 96127; 99212 ==

== ENCOUNTER 2024-11-19 13:06 | Outpatient (AMB) | payer OTHER, SELFPAY ==
[2024-11-19 13:25] VITALS: BP 122/70; RESP 18; TEMP 36.3; BMI 23.6
--- NOTE | 2024-11-19 13:25 | A.OFFPC_ITS ---
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 Required: No Accompanied by: Self / Same As Patient Allergies No Known Allergies Allergy (Verified 11/19/24 15:36) Medication List - Last Reconciled 11/19/24 by Manjeet Wyatt MD albuterol sulfate 90 mcg/actuation (Ventolin HFA) 2 puffs inhalation Q4-6H PRN amlodipine 5 mg PO DAILY 90 days bisacodyl (Dulcolax (bisacodyl)) 20 mg (4 x 5 mg) PO ONCE 1 day budesonide-formoterol 160-4.5 mcg/actuation (Symbicort) 1 inh inhalation BID 30 days cholecalciferol (vitamin D3) 50 mcg PO DAILY 90 days citalopram 20 mg PO DAILY 90 days fluticasone propionate 50 mcg/actuation 2 sprays intranasal DAILY melatonin 3 mg PO BEDTIME PRN 30 days polyethylene glycol 3350 (Miralax) 238 grams PO ONCE Tobacco use date assessed: 11/19/24 Dental Screening Dental Screen Date: 11/19/24 Did you have a dental visit in the last 12 months?: No Did you have a dental problem in the last 6 months where you did not have access to dental care?: No Was dental information given to patient?: No HPI Annual Exam HPI Details Patient comes in today for his annual physical examination States that he feels okay He denies any headaches or dizziness Denies any chest pains but reports that he has been experiencing recurrent chest tightness and some shortness of breath lately Relates that he has been using his rescue inhalers more often than usual over the past couple of weeks and will now need both of his inhalers Rx refilled No nausea/vomiting, no abdominal pain No change in bowel habits noted He denies any acute urinary symptoms He is scheduled now for his screening colonoscopy here at [facility] early next month and also has follow up labs ordered to be done before his next follow up appointment in a month or so Needs a couple of his Rx refilled PFSH Medical History Vitamin D deficiency Insomnia Allergic rhinitis Depression Anxiety Alcoholism COPD (chronic obstructive pulmonary disease) Benign essential hypertension ETOH abuse Surgical History No pertinent past surgical history Family History Mother High blood pressure Alzheimer disease Father Diabetes Other Mental health problem Social History Housing: House Alcohol intake: current Alcohol intake frequency: former alcohol drinker Alcohol type: beer Patient Tobacco Use Status: Former Tobacco user e-Cigarette/Vaping Use: Never Used Second Hand Smoke Exposure: Yes service: No Current occupational status: unemployed Cognitive needs: Yes Hearing needs: No Vision needs: Yes Questionnaire PHQ-9 Over the last 2 weeks, how often have you been bothered by any of the following problems? Depression Screening Interpretation: Negative Depression Screening Done: Yes Source: Developed by Drs. Domingo Cummins, Tonya Hyde, Deep Blanco and colleagues, with an educational woody from [employer]. Thrive Questionnaire Date Thrive assessed: 08/21/24 I am a: Patient What is your living situation today?: I have a steady place to live Within the past 12 months, did the food you bought not last and you didn't have the money to get more?: Never true Within the past 12 months, did you worry whether your food would run out before you got money to buy more?: Never true Do you have trouble paying for medicines?: No Do you have trouble getting transportation to medical appointments?: No Do you have trouble paying your heating and electricity bill?: No Do you have trouble taking care of your child, family member or friend?: No Do you have trouble with day-to-day activities such as bathing, preparing meals, shopping, managing finances, etc.?: No Are you currently unemployed and looking for a job?: I choose not to answer this question Are you interested in more education?: No Please select the resources that you would like help with: None Currently or been in a relationship where the following occur: No concerns reported THRIVE Score: 0 AUDIT C Alcohol Use Questionnaire (AUDIT-C) 1. How often do you have a drink containing alcohol?: Never 3. How often do you have six or more drinks on one occasion?: Never Total Score: 0 Score Reviewed/Action Taken: Yes YAIMA-7 AMB Questionnaire YAIMA-7 Date YAIMA - 7 assessed: 08/21/24 Source: Developed by Drs. Domingo Cummins, Tonya Hyde, Deep Blanco and colleagues, with an educational woody from [employer]. Review of Systems Const Denies chills, Denies fatigue, Denies fever(s) and Denies headache(s) Eyes Denies blurry vision, Denies change in vision, Denies irritation and Denies itchy eyes ENT Denies dysphagia, Denies dizziness, Denies otalgia, Denies headache(s), Denies nasal congestion, Denies neck pain, Denies odynophagia, Denies sinus pain and Denies sore throat Card Denies chest pain, Denies irregular heart rhythm, Denies palpitations and Reports dyspnea on exertion (mild) Resp Reports chest congestion (chest feels tight at times lately), Denies cough, Reports dyspnea on exertion (mild) and Denies wheezing GI Denies abdominal pain, Denies bloating, Denies constipation, Denies dysphagia, Denies heartburn, Denies diarrhea, Denies nausea, Denies odynophagia and Denies vomiting Denies difficulty urinating, Denies dysuria and Denies urinary frequency Musc Denies back pain, Denies arthralgias and Denies neck pain Skin/Breast Denies lesions and Denies rash Neuro Denies dizziness, Denies headache(s) and Denies paresthesias Endo Denies fatigue and Denies palpitations Aller/Immun Denies itchy eyes and Denies wheezing Physical exam (Primary Care) Vital Signs: Last Vital Signs Temp 97.3 F 11/19/24 13:25 Resp 18 11/19/24 13:25 BP 122/70 11/19/24 13:25 Oxygen Delivery Method Room Air 11/19/24 13:25 BMI result Body Mass Index 23.6 Tobacco/Smoking Status: Tobacco use Status Tobacco use date assessed 11/19/24 11/19/24 13:27 Patient Tobacco Use Status Former Tobacco user 11/19/24 13:27 e-Cigarette/Vaping Use Never Used 11/19/24 13:27 Depression Screening Interpretation: Negative Thrive Assessment: Date of Thrive Assessment Date Thrive assessed 08/21/24 11/19/24 13:27 Currently or been in a relationship where the following occur: No concerns reported Const General: no acute distress, alert and awake Orientation/consciousness: patient oriented x3 HENMT Head: Yes normocephalic and Yes atraumatic Ears: external ears normal, TM's normal bilaterally and EAC's normal General nose exam: No nasal discharge present Face and sinus: Yes normal facial exam and Yes sinuses nontender Teeth and gingiva: dentition normal Throat: Yes posterior oropharynx normal and Yes tonsils normal (no TP congestion) Eyes Eyelids: Yes eyelids normal Conjunctivae: conjunctivae normal Pupils: Equal, round and reactive pupils present EOM: EOMs intact bilaterally Neck Neck: Yes supple and No lymphadenopathy Thyroid: Thyroid normal Resp Auscultation: clear to auscultation bilaterally, no rales and no wheezes Cardio Rate: regular rate Rhythm: regular rhythm Heart sounds: no murmurs GI Palpation (GI): Soft to palpation, nontender and No hepatosplenomegaly present Auscultation: normal bowel sounds General: Yes no CVA tenderness Back/Spine/Pelvis Back: no CVA tenderness Thoracic/Lumbar Spine: thoracic and lumbar spine normal to inspection Skin Lesions: no lesions Rashes: no rashes Neuro General: patient oriented x3, moves all extremities, no focal motor deficits and CN's II-XI intact bilaterally Cranial nerves: Yes Equal, round and reactive pupils present Cognition (Neuro): normal cognition Gait exam (Neuro): Normal gait present Extrem General: Yes no clubbing, cyanosis or edema Coding Level of Care Code Est Pt Prev Care 40-64y(73918) Diagnoses Annual physical exam Z00.00 Benign essential hypertension I10 Chronic obstructive pulmonary disease, unspecified COPD type J44.9 COPD type: unspecified COPD Allergic rhinitis, unspecified seasonality, unspecified trigger J30.9 Allergic rhinitis trigger: unspecified Allergic rhinitis seasonality: unspecified Elevated LFTs R79.89 Vitamin D deficiency E55.9 History of alcoholism F10.21 Insomnia, unspecified type G47.00 Insomnia type: unspecified Anxiety F41.9 Episode of recurrent major depressive disorder, unspecified depression episode severity F33.9 Depression Type: major depressive disorder Major depression recurrence: recurrent Active/Remission status: currently active Major depression episode severity: unspecified Assessment & Plan Assessment & Plan (1) Annual physical exam: Code(s): Z00.00 - Encounter for general adult medical examination without abnormal findings Category: Medical Plan: He is scheduled now for his screening colonoscopy here at [facility] early next month and also has follow up labs ordered to be done before his next follow up appointment in a month or so (2) Benign essential hypertension: Code(s): I10 - Essential (primary) hypertension Category: Medical Plan: Reinforced low sodium diet - goal is systolic BP of 120 mm or less Continue Amlodipine 5 mg QD Patient is again reminded to continue monitoring his blood pressure regularly (3) COPD (chronic obstructive pulmonary disease): Code(s): J44.9 - Chronic obstructive pulmonary disease, unspecified Category: Medical Qualifiers: COPD type: unspecified COPD Qualified Code(s): J44.9 - Chronic obstructive pulmonary disease, unspecified Plan: Controlled Continue Symbicort 160-4.5 mcg 1 inhalation BID and Ventolin HFA 1 to 2 inhalations every 6 hour PRN Chest x-rays done back on 10/04/2023 came out normal (4) Allergic rhinitis: Code(s): J30.9 - Allergic rhinitis, unspecified Category: Medical Qualifiers: Allergic rhinitis trigger: unspecified Allergic rhinitis seasonality: unspecified Qualified Code(s): J30.9 - Allergic rhinitis, unspecified Plan: Continue Fluticasone 50 mcg nasal spray QD PRN (5) Elevated LFTs: Code(s): R79.89 - Other specified abnormal findings of blood chemistry Category: Medical Plan: His LFTs were completely back to normal when they were last checked in September 2023 Will continue to monitor his LFTs regularly (6) Vitamin D deficiency: Code(s): E55.9 - Vitamin D deficiency, unspecified Category: Medical Plan: Continue Vitamin D3 2000 units QD (7) History of alcoholism: Code(s): F10.21 - Alcohol dependence, in remission Category: Medical Plan: Patient states that he has been sober and has not had any alcohol to drink in about 2 years now (8) Insomnia: Code(s): G47.00 - Insomnia, unspecified Category: Medical Qualifiers: Insomnia type: unspecified Qualified Code(s): G47.00 - Insomnia, unspecified Plan: Sleep hygiene reinforced Continue Melatonin 3 mg Q HS PRN He could not tolerate Trazodone 50 mg in the past - states that just one dose knocked him out completely (9) Anxiety: Code(s): F41.9 - Anxiety disorder, unspecified Category: Medical Plan: He is currently on Citalopram, which helps with his anxiety Follow up with psychiatry ([facility]) as scheduled (10) Depression: Code(s): F32.A - Depression, unspecified Category: Medical Qualifiers: Depression Type: major depressive disorder Major depression recurrence: recurrent Active/Remission status: currently active Major depression episode severity: unspecified Qualified Code(s): F33.9 - Major depressive disorder, recurrent, unspecified Plan: Continue Citalopram 20 mg QD Follow up with psychiatry as scheduled Plan Follow up as scheduled next month Medications: Refilled budesonide-formoterol 160-4.5 mcg/actuation (Symbicort) 1 inh inhalation BID 10.2 grams 3RF 30 days J44.9 - Chronic obstructive pulmonary disease, unspecified albuterol sulfate 90 mcg/actuation (Ventolin HFA) 2 puffs inhalation Q4-6H PRN 6.7 grams 0RF shortness of breath or wheezing
== END 2024-11-19 15:44 | disposition home or self-care (01) ==
LOC: HO.HMCH 13:06
PROVIDERS: PCP Internal Medicine; Visit Provider Internal Medicine
DX: Z00.00 Encounter for general adult medical examination without abnormal findings (principal); I10 Essential (primary) hypertension; J44.9 Chronic obstructive pulmonary disease, unspecified; J30.9 Allergic rhinitis, unspecified; R79.89 Other specified abnormal findings of blood chemistry; E55.9 Vitamin D deficiency, unspecified; F10.21 Alcohol dependence, in remission; G47.00 Insomnia, unspecified; F41.9 Anxiety disorder, unspecified; F33.9 Major depressive disorder, recurrent, unspecified

== ENCOUNTER → 2024-11-19 13:06 | Outpatient (BNVA) | payer OTHER, SELFPAY | PROVIDERS: PCP Internal Medicine; Visit Provider Internal Medicine | DX: Z00.00 Encounter for general adult medical examination without abnormal findings (principal); I10 Essential (primary) hypertension; J44.9 Chronic obstructive pulmonary disease, unspecified; J30.9 Allergic rhinitis, unspecified; R79.89 Other specified abnormal findings of blood chemistry; E55.9 Vitamin D deficiency, unspecified; F10.21 Alcohol dependence, in remission; G47.00 Insomnia, unspecified; F41.9 Anxiety disorder, unspecified; F33.9 Major depressive disorder, recurrent, unspecified | CPT/HCPCS: 99396 ==

== ENCOUNTER 2024-12-17 09:19 | Day surgery (SDC) | payer OTHER, SELFPAY ==
[2024-12-15 14:17] VITALS: BMI 23.6
--- NOTE | 2024-12-15 14:18 | HO.ANESPROP2 ---
Documented by User: Riya Quiroga NP 12/15/24 14:19 HPI - Anesthesia Eval Consult details Narrative: 59 yr old male for colonoscopy H/O ETOH abuse in remission x2 yrs COPD PMFSH Active Problems Active Problems: All Active Problems Dyspnea (Acute) Nocturia (Acute) Colon cancer screening (Acute) History of alcoholism (Acute) Annual physical exam (Acute) Low back pain (Acute) Elevated LFTs (Acute) Vitamin D deficiency (Acute) Insomnia (Acute) Allergic rhinitis (Acute) Depression (Acute) Anxiety (Acute) Alcoholism (Acute) COPD (chronic obstructive pulmonary disease) (Acute) Benign essential hypertension (Acute) Past Medical History Medical History Vitamin D deficiency Insomnia Allergic rhinitis Depression Anxiety COPD (chronic obstructive pulmonary disease) Benign essential hypertension ETOH abuse Family History Family History Mother High blood pressure Alzheimer disease Father Diabetes Other Mental health problem Surgical History Surgical History No pertinent past surgical history Social History Social History Housing: House Are you a primary livestock caretaker to a significant other at home: No Do you presently have visiting nurse or other home services: No Alcohol intake: current Alcohol intake frequency: former alcohol drinker Alcohol type: beer Patient Tobacco Use Status: Former Tobacco user e-Cigarette/Vaping Use: Never Used Second Hand Smoke Exposure: Yes Have you been hit, kicked, punched, or otherwise hurt by someone within the past year? If so, by whom?: No Are you DNR?: No Advance Directives: No Advance Directives Information Provided: Yes service: No Current occupational status: unemployed Cognitive needs: Yes Hearing needs: No Vision needs: Yes Meds Allergies Allergy/AdvReac Type Severity Reaction Status Date / Time No Known Allergies Allergy Verified 12/17/24 10:31 Exam Height,Weight and Vital Signs: Height 5 ft 11 in Weight 68.492 kg Documented by User: Eboni France MD 12/17/24 11:07 [facility] Past Medical History Medical History Vitamin D deficiency Insomnia Allergic rhinitis Depression Anxiety COPD (chronic obstructive pulmonary disease) Benign essential hypertension ETOH abuse Family History Family History Mother High blood pressure Alzheimer disease Father Diabetes Other Mental health problem Surgical History Surgical History No pertinent past surgical history History of Problems with Anesthesia: No Social History Social History Housing: House Are you a primary livestock caretaker to a significant other at home: No Do you presently have visiting nurse or other home services: No Alcohol intake: current Alcohol intake frequency: former alcohol drinker Alcohol type: beer Patient Tobacco Use Status: Former Tobacco user e-Cigarette/Vaping Use: Never Used Second Hand Smoke Exposure: Yes Have you been hit, kicked, punched, or otherwise hurt by someone within the past year? If so, by whom?: No Are you DNR?: No Advance Directives: No Advance Directives Information Provided: Yes service: No Current occupational status: unemployed Cognitive needs: Yes Hearing needs: No Vision needs: Yes Meds Allergies Allergy/AdvReac Type Severity Reaction Status Date / Time No Known Allergies Allergy Verified 12/17/24 10:31 Exam Airway Mallampati Class: III TM Dist: >3cm Neck ROM: Full Loose/Missing/Broken Teeth: No Heart: RRR Lungs: CTA Assessment and Plan Assessment Anesthesia Assessment: Anesthesia Plan Discussed and Chart Reviewed Final Anesthetic Review History of Problems with Anesthesia: No NPO: Yes ASA Class: III Final Preanesthetic Review: Meds/Allgs Chart Reviewed, Consent Obtained/Reviewed and Anes Risks/Benef Reviewed Patient Risk: Intermediate Procedure Risk: Low Anesthetic Plan Anesthetic Plan: MAC: Disposition: Standard PACU
[2024-12-17 10:29] VITALS: BMI 24.4
[2024-12-17] MEDS: Lactated Ringers 1,000 ML 100 ML IVCONT (10:53)
[2024-12-17 10:54] VITALS: BP 144/84; PULSE 101; RESP 18; TEMP 36.7; O2SAT 98
--- NOTE | 2024-12-17 11:39 | MHC.SHP ---
Pre-Procedural Eval Section A - 24 Hr Update-Section A only Date of Service: 12/17/24 Section B - Complete if H&P > 30 days Chief Complaint: screening Relevant Family History (Specify if Yes): No Relevant Social History: None (ex alcohol abuse) Present Medications: see Short Stay Collaborative assessment Medical History: Significant History (Vitamin D deficiency Insomnia Allergic rhinitis Depression Anxiety Alcoholism COPD (chronic obstructive pulmonary disease) Benign essential hypertension ETOH abuse) History of Previous Operations: No relevant previous surgery Allergies: Allergies Allergy/AdvReac Type Severity Reaction Status Date / Time No Known Allergies Allergy Verified 12/17/24 10:31 Review of Systems Sugical H&P ROS: Negative: Constitution, Cardiovascular, Respiratory, Neurological, Psychiatric, Hem-Onc, Allergic/Immunologic, Gastrointestinal, Genitourinary, Musculoskeletal, Integumentary, Endocrine and Eyes/Ears/Nose/Throat Exam Surgical H&P Exam: Normal: HEENT, Normal: Heart, Normal: Lungs, Normal: Extremities, Normal: Abdomen, Normal: Skin and Normal: Neurological Plan Diagnosis/Plan: Unchanged I have reviewed the history and physical and performed a pertinent physical examination on my patient. No changes have occurred unless specified. Time Spent With Patient Time: Total time managing care of this patient today ____ minutes.
--- NOTE | 2024-12-17 12:03 | P.OPN-COLO_ITS ---
Colonoscopy Operative Note Operative Note Date of Service: 12/17/24 Narrative: Operative Information Procedure Description: Colonoscopy Indication: screening Anesthesia: MAC COLONOSCOPY Instrument: Olympus variable stiffness pediatric scope 190L Colonoscopy Monitoring: Vital signs and clinical assessment, continuous EKG monitoring, Pulse oximetry, Carbon Dioxide monitoring and blood pressure monitoring were done throughout the procedure. Colon withdrawal time was 10 minutes. Procedure: The patient was placed in the left lateral decubitis position and pre-procedure medications were administered. After a digital rectal examination of the ano-rectum, the video colonoscope was inserted into the rectum and advanced through the colon to the cecum/TI. The colonoscope was slowly withdrawn in a retrograde panoramic fashion and the colon mucosa was carefully examined including a retroflexed view of the rectum. Findings and interventions are described below. Procedure Difficulty: easy Findings: Terminal Ileum-normal Cecum:normal right sided retroflexion- normal Ascending Colon: normal Transverse Colon -normal Descending Colon:normal Sigmoid Colon: mild to moderate diverticulosis Rectum: Retroflexion with small internal hemorrhoids seen, grade I Anorectum - normal Intervention: none Colon preparation: [place] Bowel Preparation Scale Right colon; 2 Transverse colon: 2 Left colon; 2 (0 = Unprepared colon segment with mucosa not seen due to solid stool that cannot be cleared. 1 = Portion of mucosa of the colon segment seen, but other areas of the colon segment not well seen due to staining, residual stool and/or opaque liquid. 2 = Minor amount of residual staining, small fragments of stool and/or opaque liquid, but mucosa of colon segment seen well. 3 = Entire mucosa of colon segment seen well with no residual staining, small fragments of stool or opaque liquid) Impression and Post Procedure Diagnosis: diverticulosis internal hemorrhoids Plan: High fiber diet leaflet Avoid straining at stool, epsom salts and sitz bath, anusol supps or cream Repeat Colonoscopy in 10 years or earlier if clinically indicated Above findings were reviewed with the patient and relevant handouts were provided if indicated.
[2024-12-17 12:05] VITALS: BP 95/64; PULSE 79; RESP 16; TEMP 37.1; O2SAT 96
[2024-12-17 12:20] VITALS: BP 103/68; PULSE 69; RESP 14; O2SAT 96
[2024-12-17 12:35] VITALS: BP 136/77; PULSE 85; RESP 15; TEMP 36.3; O2SAT 97
== END 2024-12-17 13:26 | disposition home or self-care (01) ==
PROVIDERS: PCP Internal Medicine; Visit Provider Internal Medicine Gastroenterology
PROC: 0DJD8ZZ Inspection of Lower Intestinal Tract, Via Natural or Artificial Opening Endoscopic (ICD-10-PCS; CPT 45378; principal; 2024-12-17 12:00)
DX: Z12.11 Encounter for screening for malignant neoplasm of colon (principal); K64.0 First degree hemorrhoids; K57.30 Diverticulosis of large intestine without perforation or abscess without bleeding
CPT/HCPCS: 45378; J2003; J2704

== ENCOUNTER → 2024-12-17 09:19 | Outpatient (BNV) | payer OTHER, SELFPAY | PROVIDERS: PCP Internal Medicine; Visit Provider Internal Medicine Gastroenterology | DX: Z12.11 Encounter for screening for malignant neoplasm of colon (principal); K57.30 Diverticulosis of large intestine without perforation or abscess without bleeding; K64.0 First degree hemorrhoids | CPT/HCPCS: 45378 ==

== ENCOUNTER 2024-12-19 14:21 | Outpatient (REF) | payer OTHER, SELFPAY ==
[2024-12-19 14:41] LABS: MANUAL DIFF FLAG NO
[2024-12-19 14:44] LABS: Hematocrit 40.3 % (42.0-52.0); Hemoglobin 13.8 g/dl (14.0-18.0); Imm Gran Abs Auto 0.01 X10*3/uL (0.00-0.03); Imm Gran Pct Auto 0.2 % (0.0-0.4); Lymphocytes Absolute Auto 2.1 X10*3/uL (1.2-4.9); Mean Corpuscular HGB Conc 34.2 g/dl (31.0-36.0); Mean Corpuscular Hemoglobin 30.6 pg (27.0-33.0); Mean Corpuscular Volume 89.4 fL (80.0-98.0); NRBC Abs Auto 0.000 X10*3/uL (0.0-0.012); NRBC Pct Auto 0.0 /100WBC (0.0-0.2); Platelet Count 205 X10*3/uL (160-400); Red Blood Count 4.51 X10*6/uL (4.60-5.80); White Blood Count 6.5 X10*3/uL (4.8-10.8)
[2024-12-19 15:20] LABS: Alanine Aminotransferase 21 U/L (0-40); Albumin Level 4.8 g/dL (3.5-5.0); Alkaline Phosphatase 77 U/L (39-117); Anion Gap 12 (12-20); Aspartate Amino Transferase 28 U/L (5-37); Blood Urea Nitrogen 20 mg/dL (9-16); Calcium 9.4 mg/dL (8.4-10.2); Carbon Dioxide 26 mmol/L (22-29); Chloride 106 mmol/L (96-108); Cholesterol 194 mg/dL (<200); Estimated Glomerular Filt Rate > 60; HDL Cholesterol 34 mg/dL (>40); Potassium 4.2 mmol/L (3.3-5.1); Sodium 140 mmol/L (135-145); Total Protein 7.1 g/dL (6.5-8.0); Triglycerides 74 mg/dL (<150)
--- OUTSIDE RECORDS SUMMARY | 2024-12-19 16:05 | XMS_ITS | Clinical Summary ---
Author Organization [facility] ity Address [address] [place] [address] Care Team Providers Care [employer] Name Role Phone Estela Blake MD Primary Care Provider [phone] Surgical History Surgery Date Site/Laterality Comments OTHER [...] (2 - Td or Tdap) 09/25/2021 09/26/2011 Depression Screening 02/13/2024 COVID-19 Vaccine (1 - 2023-2 5 season) 2024 Influenza Vaccine (#1) 2024 RSV Immunization Adult [...] age to complete this topic Care Teams [employer] Relationship Specialty Start Date End Date Estela Blake MD [address] [place] [address] PCP - General Internal Medicine 08/24/20
== END 2024-12-19 14:22 | disposition home or self-care (01) ==
LOC: HO.LAB 14:21
PROVIDERS: PCP Internal Medicine; Visit Provider Internal Medicine
DX: D64.9 Anemia, unspecified (principal); E78.00 Pure hypercholesterolemia, unspecified; E55.9 Vitamin D deficiency, unspecified
CPT/HCPCS: 36415; 80053; 80061; 82306; 84443; 85025

== ENCOUNTER 2024-12-23 13:58 | Outpatient (REF) | payer OTHER, SELFPAY ==
[2024-12-23 14:19] LABS: Appearance Urine Clear; Glucose Urine UA Negative (Negative); PH 7.0 (5.0-9.0); Specific Gravity - Urine 1.025 (1.005-1.025)
--- OUTSIDE RECORDS SUMMARY | 2024-12-23 15:32 | XMS_ITS | Clinical Summary ---
Author Organization [facility] Address [address] [place] [address] Care Team Providers Care Game Tester Name Role Phone Estela Blake MD Primary Care Provider [phone] Surgical History Surgery Date Site/Laterality Comments OTHER [...] Years Used Date Smoking Tobacco: Former Cigarettes 1.5 Q uit: 02/12/2003 Smokeless Tobacco: Never Alcohol [...] Depression Screening 02/13/2024 COVID-19 Vaccine (1 - 2024-2 6 season) 2024 Influenza Vaccine (#1) 2024 RSV [...] age to complete this topic Care Teams Game Tester Relationship Specialty Start Date End Date Estela Blake MD [address] [place] [address] PCP - General Internal Medicine 08/24/20
== END 2024-12-23 13:59 | disposition home or self-care (01) ==
LOC: HO.LNP 13:58
PROVIDERS: Visit Provider Internal Medicine
DX: R30.0 Dysuria (principal)
CPT/HCPCS: 81003

== ENCOUNTER 2024-12-24 15:35 | Outpatient (AMB) | payer OTHER, SELFPAY ==
--- NOTE | 2024-12-24 15:41 | A.OFFPC_ITS ---
Vital Signs 12/24/24 15:42 Height 5 ft 11 in Weight 176 lb BMI 24.5 BP 120/62 Blood Pressure Location Lt brachial Position Sitting Pulse 70 Pulse Source Pulse Oximeter Pulse Oximetry (%) 98 Oxygen Delivery Method Room Air Intake Visit Reasons: 4 months Swedish Masseuse Required: No Accompanied by: Self / Same As Patient Allergies No Known Allergies Allergy (Verified 12/24/24 16:26) Medication List - Last Reconciled 12/24/24 by Manjeet Wyatt MD albuterol sulfate 90 mcg/actuation (Ventolin HFA) 2 puffs inhalation Q4-6H PRN amlodipine 5 mg PO DAILY 90 days budesonide-formoterol 160-4.5 mcg/actuation (Symbicort) 1 inh inhalation BID 30 days cholecalciferol (vitamin D3) 50 mcg PO DAILY 90 days citalopram 20 mg PO DAILY 90 days fluticasone propionate 50 mcg/actuation 2 sprays intranasal DAILY melatonin 3 mg PO BEDTIME PRN 30 days Tobacco use date assessed: 12/24/24 Dental Screening Dental Screen Date: 12/24/24 Did you have a dental visit in the last 12 months?: No Did you have a dental problem in the last 6 months where you did not have access to dental care?: No Was dental information given to patient?: No HPI 4 months HPI Details Patient comes in today for his follow up visit States that he feels okay He denies any headaches or dizziness Denies any chest pains, no SOB No nausea/vomiting, no abdominal pain No change in bowel habits noted Adds that he's had an itchy rash near his left heel area that he states has been bothering him for a couple of weeks now - states that he has just been applying some OTC Vicks Vaporub on it for the past week or so with little improvement He had his follow up labs done a few days ago - to discuss his results He also had his screening colonoscopy done with Dr. Amador last week on 12/17/2024 - colonoscopy came out normal except for some diverticulosis and internal hemorrhoids and his next one will be in 10 years (2034) PFSH Medical History Pure hypercholesterolemia Vitamin D deficiency Insomnia Allergic rhinitis Depression Anxiety COPD (chronic obstructive pulmonary disease) Benign essential hypertension ETOH abuse Surgical History (Updated 12/24/24 @ 16:38 by Manjeet Wyatt MD) History of colonoscopy Family History Mother High blood pressure Alzheimer disease Father Diabetes Other Mental health problem Social History Housing: House Are you a primary caretaker resort to a significant other at home: No Do you presently have visiting nurse or other home services: No Alcohol intake: current Alcohol intake frequency: former alcohol drinker Alcohol type: beer Patient Tobacco Use Status: Former Tobacco user e-Cigarette/Vaping Use: Never Used Second Hand Smoke Exposure: Yes service: No Current occupational status: unemployed Cognitive needs: Yes Hearing needs: No Vision needs: Yes Questionnaire PHQ-9 Over the last 2 weeks, how often have you been bothered by any of the following problems? 1. Little interest or pleasure in doing things: not at all 2. Feeling down, depressed, or hopeless: not at all 3. Trouble falling or staying asleep, or sleeping too much: not at all 4. Feeling tired or having little energy: not at all 5. Poor appetite or overeating: not at all 6. Feeling bad about yourself - or that you are a failure or have let yourself or your family down: not at all 7. Trouble concentrating on things, such as reading the newspaper or watching television: not at all 8. Moving or speaking so slowly that other people could have noticed. Or the opposite - being so fidgety or restless that you have been moving around a lot more than usual: not at all 9. Thoughts that you would be better off or of hurting yourself in some way: not at all Total score: 0 Depression Screening Interpretation: Negative Depression Screening Done: Yes 04250 - PHQ-9 Billing: Yes Source: Developed by Drs. Domingo Cummins, Tonya Hyde, Deep Blanco and colleagues, with an educational woody from [employer]. Thrive Questionnaire Date Thrive assessed: 12/24/24 I am a: Patient What is your living situation today?: I have a steady place to live Within the past 12 months, did the food you bought not last and you didn't have the money to get more?: Never true Within the past 12 months, did you worry whether your food would run out before you got money to buy more?: Never true Do you have trouble paying for medicines?: No Do you have trouble getting transportation to medical appointments?: No Do you have trouble paying your heating and electricity bill?: No Do you have trouble taking care of your child, family member or friend?: No Do you have trouble with day-to-day activities such as bathing, preparing meals, shopping, managing finances, etc.?: No Are you currently unemployed and looking for a job?: I choose not to answer this question Are you interested in more education?: No Please select the resources that you would like help with: None Currently or been in a relationship where the following occur: No concerns reported THRIVE Score: 0 AUDIT C Alcohol Use Questionnaire (AUDIT-C) 1. How often do you have a drink containing alcohol?: Never 3. How often do you have six or more drinks on one occasion?: Never Total Score: 0 Score Reviewed/Action Taken: Yes YAIMA-7 AMB Questionnaire YAIMA-7 Date YAIMA - 7 assessed: 12/24/24 Feeling nervous, anxious, or on edge: 0 = Not at all Not being able to stop or control worryin = Not at all Worrying too much about different things: 0 = Not at all Trouble relaxin = Not at all Being so restless that it is hard to sit still: 0 = Not at all Becoming easily annoyed or irritable: 0 = Not at all Feeling afraid as if something awful might happen: 0 = Not at all Total YAIMA-7 score (0-4 normal; 5-9 mild; 10-14 moderate; 15-21 severe): 0 Source: Developed by Drs. Domingo Cummins, Tonya Hyde, Deep Blanco and colleagues, with an educational woody from [employer]. Review of Systems Const Denies chills, Denies fatigue, Denies fever(s) and Denies headache(s) ENT Denies dysphagia, Denies dizziness, Denies otalgia, Denies headache(s), Denies neck pain, Denies odynophagia and Denies sore throat Card Denies chest pain, Denies irregular heart rhythm, Denies palpitations and Denies dyspnea Resp Denies chest congestion, Denies cough, Denies dyspnea and Denies wheezing GI Denies abdominal pain, Denies constipation, Denies dysphagia, Denies heartburn, Denies diarrhea, Denies nausea, Denies odynophagia and Denies vomiting Denies difficulty urinating, Denies dysuria, Denies nocturia and Denies urinary frequency Musc Denies back pain, Denies arthralgias and Denies neck pain Skin/Breast Reports rash (on left foot near the heel area - see HPI) Neuro Denies dizziness, Denies headache(s) and Denies paresthesias Endo Denies fatigue and Denies palpitations Aller/Immun Denies wheezing Physical exam (Primary Care) Vital Signs: Last Vital Signs Pulse 70 12/24/24 15:42 BP 120/62 12/24/24 15:42 Pulse Ox 98 12/24/24 15:42 Oxygen Delivery Method Room Air 12/24/24 15:42 BMI result Body Mass Index 24.5 Tobacco/Smoking Status: Tobacco use Status Tobacco use date assessed 12/24/24 12/24/24 15:45 Patient Tobacco Use Status Former Tobacco user 12/24/24 15:45 e-Cigarette/Vaping Use Never Used 12/24/24 15:45 PHQ-9: PHQ-9 Score PHQ-9: Total score 0 12/24/24 16:28 Depression Screening Interpretation: Negative Thrive Assessment: Date of Thrive Assessment Date Thrive assessed 12/24/24 12/24/24 15:45 Currently or been in a relationship where the following occur: No concerns reported Const General: no acute distress and alert HENMT Ears: TM's normal bilaterally and EAC's normal Throat: Yes posterior oropharynx normal and Yes tonsils normal (no TP congestion) Neck Neck: Yes supple and No lymphadenopathy Thyroid: Thyroid normal Resp Auscultation: clear to auscultation bilaterally, no rales and no wheezes Cardio Rate: regular rate Rhythm: regular rhythm Heart sounds: no murmurs GI Palpation (GI): Soft to palpation and nontender Auscultation: normal bowel sounds General: Yes no CVA tenderness Back/Spine/Pelvis Back: no CVA tenderness Thoracic/Lumbar Spine: No lumbar spinal tenderness Skin Other: (+) circular erythematous patchy rash noted over the lateral aspect of the left foot adjacent to the heel area Extrem General: Yes no clubbing, cyanosis or edema Results Reviewed Results Reviewed: Laboratory Tests 12/19/24 12/23/24 14:39 09:40 WBC 6.5 Hgb 13.8 L Hct 40.3 L Plt Count 205 Sodium 140 Potassium 4.2 Creatinine 1.19 Estimated GFR > 60 Fasting Glucose 87 Calcium 9.4 AST 28 ALT 21 Triglycerides 74 Cholesterol 194 LDL Cholesterol, Calc 146 H HDL Cholesterol 34 L 25-OH Vitamin D Total 51.6 TSH 2.12 Ur Specific [place] 1.025 Urine Protein Negative Urine Glucose (UA) Negative Urine Blood Negative Urine Nitrite Negative Ur Leukocyte Esterase Negative Coding Level of Care Code Est Pt Level 4 (32715) Diagnoses Pure hypercholesterolemia E78.00 Benign essential hypertension I10 Chronic obstructive pulmonary disease, unspecified COPD type J44.9 COPD type: unspecified COPD Allergic rhinitis, unspecified seasonality, unspecified trigger J30.9 Allergic rhinitis seasonality: unspecified Allergic rhinitis trigger: unspecified Elevated LFTs R79.89 Vitamin D deficiency E55.9 Rash R21 History of alcoholism F10.21 Insomnia, unspecified type G47.00 Insomnia type: unspecified Anxiety F41.9 Episode of recurrent major depressive disorder, unspecified depression episode s everity F33.9 Active/Remission status: currently active Depression Type: major depressive disorder Major depression episode severity: unspecified Major depression recurrence: recurrent Additional Codes PHQ-9 - 03663 - PHQ-9 Billing: Yes ([id number]) Assessment & Plan Assessment & Plan (1) Pure hypercholesterolemia: Code(s): E78.00 - Pure hypercholesterolemia, unspecified Category: Medical Plan: Results of his labs done a few days ago reviewed and discussed with patient - he is advised that his LDL cholesterol is now high at 146 mg/dl and has gone up since he last had his cholesterol levels checked last year Discussed low cholesterol diet Will have patient recheck his labs and fasting lipids in 4 months for follow up (2) Benign essential hypertension: Code(s): I10 - Essential (primary) hypertension Category: Medical Plan: Reinforced low sodium diet - goal is systolic BP of 120 mm or less Continue Amlodipine 5 mg QD Patient is again reminded to continue monitoring his blood pressure regularly (3) COPD (chronic obstructive pulmonary disease): Code(s): J44.9 - Chronic obstructive pulmonary disease, unspecified Category: Medical Qualifiers: COPD type: unspecified COPD Qualified Code(s): J44.9 - Chronic obstructive pulmonary disease, unspecified Plan: Controlled Continue Symbicort 160-4.5 mcg 1 inhalation BID and Ventolin HFA 1 to 2 inhalations every 6 hour PRN Chest x-rays done back on 10/04/2023 came out normal (4) Allergic rhinitis: Code(s): J30.9 - Allergic rhinitis, unspecified Category: Medical Qualifiers: Allergic rhinitis seasonality: unspecified Allergic rhinitis trigger: unspecified Qualified Code(s): J30.9 - Allergic rhinitis, unspecified Plan: Continue Fluticasone 50 mcg nasal spray QD PRN (5) Elevated LFTs: Code(s): R79.89 - Other specified abnormal findings of blood chemistry Category: Medical Plan: His LFTs were completely back to normal in September 2023 and have remained normal since Will continue to monitor his LFTs regularly (6) Vitamin D deficiency: Code(s): E55.9 - Vitamin D deficiency, unspecified Category: Medical Plan: Continue Vitamin D3 2000 units QD (7) Rash: Code(s): R21 - Rash and other nonspecific skin eruption Category: Medical Plan: Have advised patient that the rash on his left foot (near the heel area) appears to be consistent with a fungal rash Will start him on Clotrimazole 1% cream to apply to the rash on his left foot TID x 10 days minimum (8) History of alcoholism: Code(s): F10.21 - Alcohol dependence, in remission Category: Medical Plan: Patient states that he has been sober and has not had any alcohol to drink in over 2 years now (9) Insomnia: Code(s): G47.00 - Insomnia, unspecified Category: Medical Qualifiers: Insomnia type: unspecified Qualified Code(s): G47.00 - Insomnia, unspe cified Plan: Sleep hygiene reinforced Continue Melatonin 3 mg Q HS PRN He could not tolerate Trazodone 50 mg in the past - recalls that just one dose knocked him out completely (10) Anxiety: Code(s): F41.9 - Anxiety disorder, unspecified Category: Medical Plan: He is currently on Citalopram, which helps with his anxiety Follow up with psychiatry ([facility]) as scheduled (11) Depression: Code(s): F32.A - Depression, unspecified Category: Medical Qualifiers: Active/Remission status: currently active Depression Type: major depressive disorder Major depression episode severity: unspecified Major depression recurrence: recurrent Qualified Code(s): F33.9 - Major depressive disorder, recurrent, unspecified Plan: Continue Citalopram 20 mg QD Follow up with psychiatry as scheduled Plan Follow up in 4 months Orders: Orders Lipid Panel 4 Months E78.00 - Pure hypercholesterolemia, unspecified Comprehensive [place]. Panel Fast 4 Months E78.00 - Pure hypercholesterolemia, unspecified Medications: New clotrimazole 1% 1 appl topical TID 30 grams 0RF 10 days
[2024-12-24 15:42] VITALS: BP 120/62; PULSE 70; O2SAT 98; BMI 24.5
--- OUTSIDE RECORDS SUMMARY | 2024-12-24 18:42 | XMS_ITS | Clinical Summary ---
[facility] Organization [facility] Address [address] [place] [address] Care Team Providers Care Computer Information Science Professor Name Role Phone Estela Blake MD Primary Care Provider [phone] Surgical History Surgery Date Site/Laterality Comments OTHER [...] age to complete this topic Care Teams Computer Information Science Professor Relationship Specialty Start Date End Date Estela Blake MD [address] [place] [address] PCP - General Internal Medicine 08/24/20
== END 2024-12-24 16:34 | disposition home or self-care (01) ==
LOC: HO.HMCH 15:36
PROVIDERS: PCP Internal Medicine; Visit Provider Internal Medicine
DX: J44.9 Chronic obstructive pulmonary disease, unspecified (principal); F10.21 Alcohol dependence, in remission; E78.00 Pure hypercholesterolemia, unspecified; I10 Essential (primary) hypertension; J30.9 Allergic rhinitis, unspecified; R79.89 Other specified abnormal findings of blood chemistry; E55.9 Vitamin D deficiency, unspecified; R21 Rash and other nonspecific skin eruption; G47.00 Insomnia, unspecified; F41.9 Anxiety disorder, unspecified; F33.9 Major depressive disorder, recurrent, unspecified

== ENCOUNTER → 2024-12-24 15:35 | Outpatient (BNVA) | payer OTHER, SELFPAY | PROVIDERS: PCP Internal Medicine; Visit Provider Internal Medicine | DX: I10 Essential (primary) hypertension (principal); J44.9 Chronic obstructive pulmonary disease, unspecified; J30.9 Allergic rhinitis, unspecified; R79.89 Other specified abnormal findings of blood chemistry; E55.9 Vitamin D deficiency, unspecified; R21 Rash and other nonspecific skin eruption; F10.21 Alcohol dependence, in remission; G47.00 Insomnia, unspecified; F41.9 Anxiety disorder, unspecified; F33.9 Major depressive disorder, recurrent, unspecified; E78.00 Pure hypercholesterolemia, unspecified | CPT/HCPCS: 96127; 99212 ==